=== PATIENT | female | born 1970 | race Caucasian/White ===

== ENCOUNTER → 2018-02-14 17:21 | Outpatient (CLI) | payer OTHER, SELFPAY ==
--- NOTE | 2018-02-14 | XR_ITS ---
XR femur LT 1V, XR femur RT 1V Ordering Physician: Kaitlyn Avendaño Patient Age: 47 years: Female HISTORY: TECHNIQUE: Left femur: AP and lateral Right femur: AP and lateral COMPARISON :Previous left knee from 2010 ===== LEFT FEMUR: AP AND LATERAL The left femoral shaft is intact. Limited 2 views of the left hip included unremarkable.. Today's left femur study also includes limited 2 views of the left knee. With comparison with previous left knee 2008.. The scant sharpening at lateral joint margin is stable, with joint spaces fairly well maintained at medial and & lateral compartment. There is a minimal mulberry-like 15-mm stippled calcification seen at distal femur just superior to the intercondylar notch. This was likely faintly developing in 2008 but is more evident today. More likely benign features such small old infarct or progressive benign bone island its indolent course of this small calcified foci. Other entities developing enchondroma less likely. There should be persistent pain at the distal femur in a follow-up view of the left knee follow-up in 3-months Suggested The soft tissues of the left thigh appear unremarkable. . ========= RIGHT FEMUR: AP AND LATERAL Right femoral shaft intact. 2 Limited views of the right hip included & unremarkable. The Limited views right knee on this femur film appears satisfactory with joint space overall fairly well-maintained on these limited views. Subtle Sharpening the at lateral joint margin may reflect some scant early degenerative changes. Unimpressive. ====IMPRESSION: 1. Right femur Views unremarkable. 2. Left femur. Intact. No acute findings. Femoral shaft intact unremarkable. On limited views of left knee is still noted a stable area sclerotic calcification just superior to the intercondylar notch which was likely faintly developing 2008.. Most likely benign indolent of minimally sclerotic bone lesion. However there should be persistent pain in this region follow-up study left knee suggested within the next 3 months to further evaluate
--- NOTE | 2018-02-14 | XR_ITS ---
XR foot LT min 3V, XR foot RT min 3V Ordering Physician: Kaitlyn Avendaño Patient Age: 47 years: Female HISTORY: ITS.REASON: PAIN bilateral foot pain TECHNIQUE: Left foot radiograph: 3 views nonweightbearing Right foot radiograph: 3 views nonweightbearing COMPARISON contralateral foot but with:No studies prior to today LEFT FOOT RADIOGRAPH: RIGHT FOOT RADIOGRAPH: 3 views of both left & right foot show no fracture nor dislocation. Joint spaces are well-maintained throughout. No erosions. Bones well mineralized. Both feet demonstrate accessory ossicle formation along the dorsal proximal corner of the navicular. Of this would appear to reflect the accessory ossicle,/os supranaviculare. Small accessory ossicle in ~ 1% of population (also called the dorsal talonavicular ossicle). It is slightly larger more irregular more evident at the left foot than typically seen. In this patient tender here or symptomatic optically on left here... Mild/moderate flexion is seen at at the second through fifth toe in both feet. Requires correlation. Adequate appearing plantar arch bilaterally Borderline to early hallux valgus suggest at the right foot more so than left on this nonweightbearing view. Bilateral plantar calcaneal spur Left foot with over 9 mm plantar calcaneal spur.. Right foot slightly thicker in larger-~11 mm calcaneal spur No spurring at insertion of Achilles tendon in either right or left foot. IMPRESSION: 1.. No fracture nor acute findings. 2. Suggestion of borderline/toearly hallux valgus on this nonweightbearing film. Also note mild/moderate flexion second-fifth toes bilateral.. Clinical correlation required regarding these features . 3. Bilateral plantar calcaneal spur. Right slightly thicker and larger than left 2. Incidental note os supranaviculareAccessory ossicle bilaterally seen at dorsal proximal margin of the navicular. This accessory ossicle is larger, more sclerotic and irregular appearance on the left foot than typically seen. Is patient symptomatic here?.
--- NOTE | 2018-02-14 | XR_ITS ---
XR hand LT min 3V, XR hand RT min 3V Ordering Physician: Kaitlyn Avendaño Patient Age: 47 years: Female HISTORY: ITS.REASON: PAINno known injury. No trauma reported TECHNIQUE: Right hand 3 views Left hand 3 views COMPARISON no previous studies. Only:Contralateral study from today ========= RIGHT HAND 3 VIEWS. Note: There is an oblique line at the head, neck of the middle phalanx long finger. Correlation required here. No focal swelling in this is only seen on the frontal projection. On difficult to exclude a subtle hairline fracture if pain at this site there are degenerative changes at the DIP joints most evident at the long and index finger where note posterior and anterior marginal osteophytes are most evident about the DIP joints. Scant degenerative changes IP joint of thumb as well as the fourth and fifth DIP joints. The PIP joints appear intact with only borderline narrowing.. Moderate Arthritic changes are seen at the first carpal-metacarpal joint with sclerosis about fragmentation minor hypertrophy here. Other carpals unremarkable. ===== IMPRESSION --- Right Hand:======= *1. Note subtle oblique line through the head of middle phalanx index finger. Seen only on frontal projection. Requires correlation. Cannot exclude a hairline fracture but no history of pain to raise concern here in this regard and it is not seen on the other views. Could be unusual vascular channel. 2. Degenerative changes right hand, Thick changes at DIP joints most evident & pronounced third & second DIP joint right hand.. Narrowing sclerosis marginal osteophytes most evident at these joints.. Less evident degenerative changes at IP joint of thumb and the fourth and fifth the IP joint. 3. moderate Degenerative arthritic changes of first carpal-metacarpal joint ======= LEFT HAND 3 VIEWS No fracture nor subluxation. Narrowing and developing arthritic changes at DIP joint of the left fingers. We again see marginal osteophytes most evident about the DIP joint of the index finger & lesser degree DIP joint long finger. Only trace, mild joint space narrowing at DIP joint of fourth & fifth finger. Borderline to scant narrowing at PIP joints of the fingers. Mild narrowing IP joint of thumb.. . Arthritic changes are seen at first carpal-metacarpal joint with sclerosis and joint space narrowing moderate minimal fragmentation and marginal osteophytes here. ==. IMPRESSION: Left hand= 1. Degenerative arthritic changes left hand. . Most evident & pronounced at DIP joints of index & long finger. 2. Moderate degenerative arthritic changes at first carpal-metacarpal joint
== END ==
PROVIDERS: PCP Nurse Practitioner Family; Visit Provider Nurse Practitioner Family
DX: M79.604 Pain in right leg (principal); M79.605 Pain in left leg; M79.672 Pain in left foot; M79.671 Pain in right foot; M79.642 Pain in left hand; M79.641 Pain in right hand
CPT/HCPCS: 73130; 73551; 73630

== ENCOUNTER → 2018-09-20 18:50 | Outpatient (CLI) | payer OTHER, SELFPAY ==
[2018-09-20 19:29] LABS: Alanine Aminotransferase 18 U/L (12-78); Albumin Level 3.7 gm/dL (3.4-5.0); Albumin/Globulin Ratio 1.1 (1.1-1.8); Alkaline Phosphatase 102 U/L (46-116); Anion Gap 11.2 mEq/L (5-15); Aspartate Amino Transferase 14 U/L (15-37); Bilirubin,Total 0.3 mg/dL (0.2-1.0); Blood Urea Nitrogen 10 mg/dL (7-18); C-Reactive Protein 0.3 mg/L (0.0-0.9); Calcium 9.3 mg/dL (8.5-10.1); Carbon Dioxide 32 mmol/L (21.0-32.0); Chloride 98 mmol/L (98-107); Creatinine,Serum 0.74 mg/dL (0.55-1.02); Estimated Glomerular Filt Rate 84 ml/min (>60); GFR (African American) 102 ML/MIN (>60); Globulin 3.4 gm/dl (1.3-3.2); Glucose 193 mg/dL (74-106); Potassium 4.2 mmoL/L (3.5-5.1); Sodium 137 mmol/L (136-145); Thyroid Stimulating Hormone 2.84 uIU/ml (0.358-3.740); Total Protein,Serum 7.1 gm/dL (6.4-8.2)
[2018-09-23 06:43] LABS: Vitamin D 25 Hydroxy 47.3 ng/mL (30.0-100.0)
== END ==
PROVIDERS: PCP Family Medicine; Visit Provider Family Medicine
DX: M25.50 Pain in unspecified joint (principal); R53.83 Other fatigue; E55.9 Vitamin D deficiency, unspecified
CPT/HCPCS: 36415; 80053; 82652; 84443; 86140

== ENCOUNTER → 2018-11-10 14:22 | Outpatient (CLI) | payer OTHER, SELFPAY ==
--- NOTE | 2018-11-10 14:28 | MR_ITS ---
MR head/brain wo con HISTORY: Bilateral arm numbness ITS.REASON: PARESTHESIA OF SKIN, ANESTHESIA OF SKIN ORDERING PHYSICIAN: Kaitlyn Avendaño PATIENT AGE: 48 years Comparison: None TECHNIQUE: Standard multiplanar multiecho sequences are performed without contrast. FINDINGS: No midline shift, mass effect, intracranial hemorrhage, or hydrocephalus is evident. No evidence of acute infarction. Normal nickerson-white matter differentiation with no abnormal white matter signal evident. The hippocampal gyri are unremarkable and the temporal horns are symmetric. No pituitary mass. The optic chiasm, cerebellar tonsils, and craniocervical junction have an unremarkable appearance. The cerebellopontine angle, cerebellum, and brainstem are unremarkable No mastoid effusion or sinus air-fluid level IMPRESSION: Negative unenhanced MRI of the brain
== END ==
PROVIDERS: PCP Family Medicine; Visit Provider Nurse Practitioner Family
DX: R20.2 Paresthesia of skin (principal); R20.0 Anesthesia of skin
CPT/HCPCS: 70551

== ENCOUNTER → 2019-03-09 08:06 | Outpatient (POV) | payer OTHER, SELFPAY | PROVIDERS: Visit Provider Dentist | DX: Z00.00 Encounter for general adult medical examination without abnormal findings (principal) ==

== ENCOUNTER → 2019-04-17 11:20 | Outpatient (CLI) | payer OTHER, SELFPAY ==
[2019-04-18 11:58] LABS: C-Reactive Protein 1.6 mg/L (0.0-0.9)
[2019-04-19 10:06] LABS: RA Latex Turbid. <10.0 IU/mL (0.0-13.9)
[2019-04-19 12:17] LABS: Sjogren's Anti-SS-A <0.2 AI (0.0-0.9)
[2019-04-20 12:36] LABS: Hepatitis C Antibody <0.1 s/co ratio (0.0-0.9); Sjogren's Anti-SS-B <0.2 AI (0.0-0.9)
[2019-04-20 12:37] LABS: Antinuclear Antibodies, IFA Negative (.)
== END ==
PROVIDERS: Visit Provider Nurse Practitioner Family
DX: R20.2 Paresthesia of skin (principal)
CPT/HCPCS: 86038; 86140; 86235; 86431; 87380

== ENCOUNTER → 2019-05-05 08:30 | Outpatient (CLI) | payer OTHER, SELFPAY ==
[2019-05-05 12:19] LABS: Alanine Aminotransferase 26 U/L (12-78); Albumin Level 4.1 gm/dL (3.4-5.0); Albumin/Globulin Ratio 1.3 (1.1-1.8); Alkaline Phosphatase 125 U/L (46-116); Anion Gap 15.1 mEq/L (5-15); Aspartate Amino Transferase 14 U/L (15-37); Bilirubin,Total 0.3 mg/dL (0.2-1.0); Blood Urea Nitrogen 8 mg/dL (7-18); Calcium 10.2 mg/dL (8.5-10.1); Carbon Dioxide 32 mmol/L (21.0-32.0); Chloride 96 mmol/L (98-107); Creatinine,Serum 0.69 mg/dL (0.55-1.02); Estimated Glomerular Filt Rate 92 ml/min (>60); GFR (African American) 111 ML/MIN (>60); Globulin 3.2 gm/dl (1.3-3.2); Glucose 328 mg/dL (74-106); Potassium 4.1 mmoL/L (3.5-5.1); Sodium 139 mmol/L (136-145); Total Protein,Serum 7.3 gm/dL (6.4-8.2)
[2019-05-06 20:50] LABS: C-Peptide 3.9 ng/mL (1.1-4.4); Insulin Level Total 16.4 uIU/mL (2.6-24.9)
== END ==
PROVIDERS: Visit Provider Nurse Practitioner Family
DX: E87.6 Hypokalemia (principal); E11.9 Type 2 diabetes mellitus without complications; Z79.84 Long term (current) use of oral hypoglycemic drugs
CPT/HCPCS: 36415; 80053; 83525; 84681

== ENCOUNTER → 2019-12-01 09:49 | Outpatient (CLI) | payer OTHER, SELFPAY ==
[2019-12-01 11:40] LABS: Alanine Aminotransferase 13 U/L (12-78); Albumin Level 3.8 gm/dL (3.4-5.0); Albumin/Globulin Ratio 1.2 (1.1-1.8); Alkaline Phosphatase 98 U/L (46-116); Anion Gap 10.5 mEq/L (5-15); Aspartate Amino Transferase 5 U/L (15-37); Bilirubin,Total 0.3 mg/dL (0.2-1.0); Blood Urea Nitrogen 13 mg/dL (7-18); Calcium 9.3 mg/dL (8.5-10.1); Carbon Dioxide 34 mmol/L (21.0-32.0); Chloride 99 mmol/L (98-107); Chol/HDL Ratio 4.4 (1-3.5); Cholesterol 225 mg/dL (140-200); Creatinine,Serum 0.69 mg/dL (0.55-1.02); Estimated Glomerular Filt Rate 91 ml/min (>60); GFR (African American) 110 ML/MIN (>60); Globulin 3.2 gm/dl (1.3-3.2); Glucose 243 mg/dL (74-106); HDL Cholesterol 51 mg/dL (29-89); LDL Cholesterol 130 mg/dL (0-130); Potassium 4.5 mmoL/L (3.5-5.1); Sodium 139 mmol/L (136-145); Triglycerides 220 mg/dL (30-200); VLDL Cholesterol 44 mg/dL (0-40)
== END ==
PROVIDERS: Visit Provider Nurse Practitioner Family
DX: E11.9 Type 2 diabetes mellitus without complications (principal); Z79.84 Long term (current) use of oral hypoglycemic drugs
CPT/HCPCS: 36415; 80053; 80061

== ENCOUNTER → 2020-04-02 09:39 | Outpatient (CLI) | payer OTHER, MEDICAID, SELFPAY ==
--- NOTE | 2020-04-02 09:56 | XR_ITS ---
PROCEDURE: XR CHEST 2V CLINICAL HISTORY: COUGH Cough, smoker COMPARISON: Chest from 04/23/2019 FINDINGS: The cardiomediastinal silhouette and pulmonary vascularity are within normal limits. The lungs are clear without infiltrates, suspicious nodules, or pleural effusions. No acute bony abnormalities. IMPRESSION: No acute findings. Dictated by: Puneet Nguyen MD 04/02/2020 14:06 Electronically signed by Puneet Nguyen MD in [place] 04/02/2020 14:06
== END ==
PROVIDERS: PCP Family Medicine; Visit Provider Nurse Practitioner Family
DX: R05 Cough (principal)
CPT/HCPCS: 71046

== ENCOUNTER → 2020-09-07 10:10 | Outpatient (CLI) | payer MEDICAID, SELFPAY ==
--- NOTE | 2020-09-07 10:47 | XR_ITS ---
PROCEDURE: XR CERVICAL SPINE 4V Referring Doctor: Fransico Gee Patient Age:50Y CLINICAL INDICATION: RIGHT ARM NUMBNESS , CERVICALGIA patient would not hold still COMPARISON: No exams were available for comparison FINDINGS: Mild scoliosis spine noted:. Levoscoliosis upper T-spine with associated mild dextrocurvature cervical thoracic junction and lower T-spine. Degenerative disc space narrowing and findings most evident at C6/7. Posterior spur spurring at C6/7 yields bilateral foraminal encroachment a most evident to the left at this level. There is also some uncovertebral joint hypertrophy and spurring at C5/6 which yields moderate right foraminal encroachment along with some facet hypertrophy on the right at C5/6 C3/4. Moderate left foraminal encroachment due to prominent left facet hypertrophy at this level along with mild uncovertebral joint spurring If symptoms severe or progress MRI C-spine would be warranted The levels above this appear intact unremarkable. C1-C2 relationships appear normal. Bones well mineralized but apices of the lungs are clear. IMPRESSION: . Mild dextroscoliosis off involving lower cervical spine& and cervical thoracic junction region. . C5/6: Moderate right foraminal encroachment at C5/6 due to uncovertebral joint spurring along with facet hypertrophy on right. . C6/7: Spurring yields moderate left foraminal encroachment ,more so than right at this level C3/4. Moderate left foraminal encroachment due to generous facet hypertrophy along with mild uncovertebral joint spurring Dictated by: Enrique Fischer MD 09/07/2020 13:32 Enrique Fischer MD in [place] 09/07/2020 13:32
--- NOTE | 2020-09-07 10:47 | XR_ITS ---
PROCEDURE: XR SHOULDER RT MIN 2V Referring Doctor: Fransico Gee Patient Age:50Y CLINICAL INDICATION: RIGHT ARM NUMBNESS no injury COMPARISON: CR Chest from 04/23/2019 CR XR CHEST 2V from 04/02/2020 CR XR CERVICAL SPINE 4V from 09/07/2020 FINDINGS: Right shoulder three views AP internal and external rotation along with Y-view. The glenohumeral joint is intact. Humeral head and neck appear intact. Degenerative changes AC joint with some [id number] spurring both superior and inferior aspect of AC joint. Radisson right lung clear upper right ribs unremarkable. Scapula unremarkable . Mild scoliosis spine noted:. Levoscoliosis upper T-spine with associated slight dextrocurvature of the lower T-spine and lower cervical spine/cervical thoracic junction region. Degenerative changes at the cervical spine described in a separate report IMPRESSION: . No acute findings at right shoulder. Mild to moderate AC joint arthropathy/hypertrophy noted Glenohumeral joint intact, unremarkable. Dictated by: Enrique Fischer MD 09/07/2020 13:37 Enrique Fischer MD in [place] 09/07/2020 13:37
--- NOTE | 2020-09-07 10:47 | XR_ITS ---
PROCEDURE: XR TIBIA FIBULA RT 2V Referring Doctor: Fransico Gee Patient Age:50Y CLINICAL INDICATION: INJURY TO RIGHT LOWER LEG patient fell with bruising and hematoma overlying proximal tibia COMPARISON: No exams were available for comparison FINDINGS: The tibia and fibula appear intact with no osseous fracture or findings of significance. There is focal soft tissue swelling anterior to the proximal tibia and just below the tibial tubercle. This focal hematoma bulges anteriorly and extends for a least 7 cm length. The underlying bone intact in this region. There is a small leobardo of calcification anterior to the lower tibia which I suspect is a venous calcification.. The lower leg study includes limited two view images of the right knee and ankle but no significant findings here.-only note a generous calcaneal spur measuring up to 9 mm at plantar aspect calcaneus, along with moderate spurring at the insertion of Achilles tendon IMPRESSION: No osseous findings. No fracture at tibia or fibula. Focal soft tissue swelling anterior to the proximal tibia reflects clinically evident hematoma Dictated by: Enrique Fischer MD 09/07/2020 13:36 Enrique Fischer MD in [place] 09/07/2020 13:36
== END ==
PROVIDERS: PCP Family Medicine; Visit Provider Family Medicine
DX: S89.91XA Unspecified injury of right lower leg, initial encounter (principal); M54.2 Cervicalgia; R20.0 Anesthesia of skin
CPT/HCPCS: 72050; 73030; 73590

== ENCOUNTER → 2020-10-29 12:27 | Outpatient (CLI) | payer BC, SELFPAY ==
--- NOTE | 2020-10-29 12:33 | XR_ITS ---
PROCEDURE: XR WRIST RT MIN 3V CLINICAL INDICATION: right wrist pain/ CTS COMPARISON: CR [id number] XR hand RT min 3V from 02/14/2018 FINDINGS: No fracture or dislocation. No lytic or blastic change. There is normal mineralization. There are osteoarthritic changes at the 1st metacarpal-carpal junction with bony hypertrophy and periarticular loose bodies. The osteoarthritic changes have increased since 02/14/2018. 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
== END ==
PROVIDERS: PCP Nurse Practitioner Family; Visit Provider Orthopaedic Surgery
DX: M25.531 Pain in right wrist (principal)
CPT/HCPCS: 73110

== ENCOUNTER 2020-10-31 14:30 | Outpatient (RCR) | payer BC, SELFPAY | END 2020-10-31 15:00 | disposition home or self-care (01) | LOC: OT 14:30 | PROVIDERS: Visit Provider Orthopaedic Surgery | DX: G56.02 Carpal tunnel syndrome, left upper limb (principal) | CPT/HCPCS: 97763 ==

== ENCOUNTER → 2020-11-06 14:53 | Outpatient (CLI) | payer BC, SELFPAY ==
[2020-11-06 15:36] LABS: Basophils % 0.6 % (0.1-2.0); Eosinophils # 0.1 K/mm3 (0.0-0.4); Eosinophils % 1.5 % (0.1-12.0); Hematocrit 41.5 % (37.0-47.0); Hemoglobin 13.6 g/dL (12.2-16.2); Lymphocytes # 1.8 K/mm3 (0.7-4.5); Lymphocytes % 23.3 % (10-50); Mean Corpuscular HGB Conc 32.7 g/dL (31.8-35.4); Mean Corpuscular Hemoglobin 29.3 pg (27.0-31.2); Mean Corpuscular Volume 89.6 fl (81-99); Mean Platelet Volume 7.5 fl (7.4-10.4); Monocytes # 0.5 K/mm3 (0.1-1.0); Monocytes % 6.8 % (1.7-9.3); Neutrophils # 5.3 K/mm3 (1.8-7.8); Neutrophils % 67.8 % (37.0-80.0); Platelet Count 307 K/mm3 (142-424); Red Blood Count 4.63 M/mm3 (4.20-5.40); Red Cell Distribution Width 13.7 % (11.5-17.5); White Blood Count 7.9 K/mm3 (4.8-10.8)
[2020-11-06 16:01] LABS: Chloride 94 mmol/L (98-107); Potassium 3.8 mmoL/L (3.5-5.1); Sodium 134 mmol/L (136-145)
[2020-11-06 16:04] LABS: Alanine Aminotransferase 44 U/L (12-78); Albumin Level 4.2 g/dl (3.5-5.0); Albumin/Globulin Ratio 1.8 (1.1-1.8); Alkaline Phosphatase 89 U/L (38-126); Anion Gap 12.8 mEq/L (5-15); Aspartate Amino Transferase 44 U/L (14-36); Bilirubin,Total 0.4 mg/dl (0.2-1.3); Blood Urea Nitrogen 13 mg/dl (7-17); Carbon Dioxide 31 mmol/L (22.0-30.0); Estimated Glomerular Filt Rate 107 ml/min (>60); GFR (African American) 129 ML/MIN (>60); Globulin 2.3 g/dL (1.3-3.2); Total Protein,Serum 6.5 g/dl (6.3-8.2)
[2020-11-06 16:05] LABS: Calcium 9.3 mg/dl (8.4-10.2); Glucose 130 mg/dl (74-100)
[2020-11-06 16:20] LABS: Coronavirus 19 IgG Antibody Negative (Negative); Coronavirus 19 IgM Antibody Negative (Negative)
[2020-11-06 17:46] LABS: Hemoglobin A1C 6.3 % (4.0-6.0)
== END ==
PROVIDERS: Visit Provider Orthopaedic Surgery
DX: Z01.818 Encounter for other preprocedural examination (principal); Z03.818 Encounter for observation for suspected exposure to other biological agents ruled out; G56.02 Carpal tunnel syndrome, left upper limb; E11.9 Type 2 diabetes mellitus without complications
CPT/HCPCS: 36415; 80053; 83036; 85025; 86328

== ENCOUNTER 2020-11-07 07:23 | Day surgery (SDC) | payer BC, MEDICAID, SELFPAY ==
[2020-11-06 11:45] VITALS: BMI 30.1
[2020-11-07] VITALS (12 sets, daily range): BP systolic 104–137; BP diastolic 68–76; PULSE 73–97; RESP 12–18; TEMP 36.3–43; O2SAT 94–96
[2020-11-07 07:58] LABS: POC Glucose,Bedside 185 (70-110)
[2020-11-07 08:13] LABS: Urine Pregnancy, HCG Qual. Negative (Negative)
--- NOTE | 2020-11-07 08:14 | P.PN_ITS ---
[facility] Anesthesia Checklist - Patient Identification Patient Identification: Arm Band, Verbal (Name & ) - Structural Data Admitted From: Home Planned Operative Procedure/s: r ctr Consent for Planned Operative Procedure(s) Verified: Yes Verified Documents: History and Physical - NPO Status Verified Time NPO: 00:00 - Additional verifications Patient : No Anesthesia Reactions: No Hx Blood Transfusions: No Blood Transfusion Reaction: No Cephalosporin Allergy: No Previous Colonoscopy: Yes - Cardiovascular Assessment Heart Sounds: S1 & S2 Pulse Strength: Baseline Pulse Rhythm: Regular Peripheral Edema: No - Airway Assessment C-Spine Mobility Assessed: Yes TMJ Mobility Assessed: Yes Dentition: Poor Dentition - Neurological Assessment Level of Consciousness: Awake, Alert, Appropriate Hx Seizures: No Numbness or tingling in extremities: No - Anesthesia Plan Anesthesia Risk discussed: Yes Anesthesia Plan: Verified ASA Class: III Anesthesia Type: General [facility] History I have reviewed the patient's past medical history: Yes Medical History: Reports:: Diabetes Mellitus Type 2 Denies:: Cancer, Diabetes Mellitus Type 1, Internal Pacemaker, MRSA, Seizures *Have you ever received a pneumonia vaccine?: No *Have you received a flu vaccine this season?: No Other Medical History: Denies: Blood Transfusion Reaction Anesthesia experience/problems:: none Other Surgeries: No: Pacemaker Amputation: No Fractures: No - *Social History Last grade of school completed: Some college Smoking Status: Current every day smoker Tobacco Type: cigarettes # Packs/Day (cigarettes): 1 Alcohol Intake: current Alcohol Intake Frequency:: holidays/special occasions only Substance Use Type: marijuana *Occupational Status:: unemployed Housing: house *Travel in the last 8 weeks: None Family Hx:: Heart Attack
--- NOTE | 2020-11-07 09:56 | P.PN_ITS ---
[facility] Anesthesia Record Part I Intake, IV Amount: 800 Estimated blood loss (mL): 0 Urine output (mL): 0 Blood Pressure: 108/68 SaO2: 95 Pulse Rate: 97 Respiratory Rate: 12 Temperature: 97.3 F Patient is:: Awake, Stable Stable to PACU at:: 09:55
--- NOTE | 2020-11-07 14:29 | HMH.OPNOTE ---
Date of procedure: 11/07/20 Pre-op Diagnosis:: Carpal tunnel syndrome, right wrist Post-op Diagnosis:: Same Procedure performed:: Open carpal tunnel release, right wrist Surgeon:: Clint Wise MD TISSUE TECHNICIAN:: Eren Hodge Anesthesia: LMA Estimated blood loss (mL): 2 Clinical Note:: Patient is a 50-year-old female with right carpal tunnel syndrome with long-standing symptoms. EMG/NCV studies confirmed moderate carpal tunnel syndrome on the right side. Patient is having significant and disabling symptoms and has failed to respond adequately to conservative management. Therefore, carpal tunnel release surgery is necessary to relieve symptoms, preserve the remaining fibers of the median nerve, improve function and decrease the pain, paresthesias and weakness and to prevent permanent nerve damage. Please refer to my office note for full details. Operative findings:: The intraoperative findings showed the median nerve to be very tightly compressed and hyperemic. The flexor retinaculum was noted to be thick and tight. There was mild synovitis in the carpal tunnel. There was no evidence of any space-occupying lesions within the carpal tunnel. Operative note:: On the day of the surgery the patient was met in the preoperative area. Patient was positively identified and the operative site was marked and initialed by me. A physical examination was performed and the chart was updated. I again discussed the procedure, risks and benefits and alternatives with the patient. The complications discussed include but are not limited to- bleeding, injury to nerves, blood vessels and tendons, infection, wound dehiscence, incomplete relief/continued pain, persistent numbness, palmar hypersensitivity, pillar pain, DVT/PE, complex regional pain syndrome(CRPS), worsening of nerve damage, failure of the condition to improve, incomplete return of function, bowstringing of tendons, weakness of wrist closer strength, recurrence, failure of the surgery to accomplish the desired goals, decreased use of the hand, loss of use of the arm, loss of the hand or arm, loss of life. Likely need for further surgery in the future has been discussed. I've indicated to the patient where the proposed incision would be made and also discussed the possibility of extending the incision if needed to accomplish an effective release. We have discussed how the goal of surgery is to protect the fibers which have remained healthy and hopefully reverse the symptoms of the fibers which are compromised but still recoverable. We have explained that, fibers that are permanently damaged will not recover. Patient asked appropriate questions and all have been answered by me. Patient wished to proceed with the surgery. Patient understood the risks, agreed to proceed with surgery, signed the consent form and no guarantees or assurances were given or implied. The patient was brought to the operating room and placed supine on the operating table. The right upper extremity was placed over a side table. All the bony prominences were well-padded. General anesthesia administered with metal technician. A well-padded tourniquet cuff was applied over the upper arm. The right upper extremity was prepped and draped in the usual sterile fashion. A preprocedure timeout was performed as per hospital policy. The skin incision was marked using the Schafer's landmarks, just ulnar to the thenar crease. The limb was exsanguinated with the Esmarch bandage and tourniquet was inflated to 250 mmHg. Please see nursing records for the total tourniquet time. Schafer's landmarks were utilized and a skin incision was made parallel and just ulnar to the thenar crease with a 15 blade. Blunt tissue dissection was carried through the subcutaneous tissue down to the palmar fascia. The palmar fascia was incised with the knife to reveal the transverse carpal ligament. The transverse carpal ligament was adequately exposed and then incised with the knife just enough to exp
--- NOTE | 2020-11-07 19:05 | HMH.ANESII ---
[facility] Anesthesia Record Part II Discharge Time: 10:22 Destination: Surgical Day Care (OP Surgery) PACU nurse assessment reviewed?: Yes Patient Condition:: Good Anesthesia Complications:: None Swallowing reflex intact?: Yes Cyanosis?: No Blood Pressure: 119/72 Pulse Rate: 79 Temperature: 97.3 F Mental Status: Alert & Oriented Pain level:: 0 Nausea and/or vomitting:: None Intake, IV Amount: 0
== END 2020-11-07 11:10 | disposition home or self-care (01) ==
LOC: OR 07:27
PROVIDERS: PCP Nurse Practitioner Family; Visit Provider Orthopaedic Surgery
PROC: (CPT 64721; principal; 2020-11-07 09:00)
DX: G56.01 Carpal tunnel syndrome, right upper limb (principal); E11.9 Type 2 diabetes mellitus without complications; Z79.84 Long term (current) use of oral hypoglycemic drugs; Z79.899 Other long term (current) drug therapy
CPT/HCPCS: 64721; 81025; 82962; 96374; J2405

== ENCOUNTER → 2021-01-01 13:57 | Outpatient (CLI) | payer OTHER, SELFPAY ==
--- NOTE | 2021-01-01 14:05 | XR_ITS ---
PROCEDURE: XR WRIST LT MIN 3V CLINICAL INDICATION: left wrist pain/ CTS COMPARISON: CR XR WRIST RT MIN 3V from 10/29/2020 FINDINGS: No fracture or dislocation. No lytic or blastic change. There is normal mineralization. Osteoarthritic changes are present at the 1st metacarpal-carpal joint which are severe in nature with prominent bony hypertrophy of the trapezium dorsally and medially at the joint space. There is a well-circumscribed calcific density which measures 9 mm lateral to the trapezium and could be due to an old injury or periarticular posttraumatic or degenerative calcification. There is mild lateral subluxation of the 1st metacarpal by proximally 5 mm. Other findings:None. IMPRESSION: Degenerative changes of the 1st metacarpal-carpal joint as described otherwise negative Dictated by: Puneet Nguyen MD 01/01/2021 14:59 Puneet Nguyen MD in [place] 01/01/2021 14:59
== END ==
PROVIDERS: PCP Nurse Practitioner Family; Visit Provider Orthopaedic Surgery
DX: M25.532 Pain in left wrist (principal)
CPT/HCPCS: 73110

== ENCOUNTER → 2021-01-14 18:24 | Outpatient (CLI) | payer OTHER, SELFPAY ==
[2021-01-14 18:48] LABS: Basophils # 0.1 K/mm3 (0-0.2); Basophils % 0.7 % (0.1-2.0); Eosinophils # 0.2 K/mm3 (0.0-0.4); Eosinophils % 2.2 % (0.1-12.0); Hematocrit 45.3 % (37.0-47.0); Hemoglobin 14.3 g/dL (12.2-16.2); Lymphocytes # 2.7 K/mm3 (0.7-4.5); Lymphocytes % 32.7 % (10-50); Mean Corpuscular HGB Conc 31.5 g/dL (31.8-35.4); Mean Corpuscular Hemoglobin 28.4 pg (27.0-31.2); Mean Corpuscular Volume 90.1 fl (81-99); Mean Platelet Volume 7.3 fl (7.4-10.4); Monocytes # 0.4 K/mm3 (0.1-1.0); Monocytes % 4.9 % (1.7-9.3); Neutrophils # 4.9 K/mm3 (1.8-7.8); Neutrophils % 59.4 % (37.0-80.0); Platelet Count 311 K/mm3 (142-424); Red Blood Count 5.03 M/mm3 (4.20-5.40); Red Cell Distribution Width 13.3 % (11.5-17.5); White Blood Count 8.3 K/mm3 (4.8-10.8)
[2021-01-14 19:29] LABS: Chloride 99 mmol/L (98-107); Sodium 135 mmol/L (136-145)
[2021-01-14 19:30] LABS: Potassium 4.2 mmoL/L (3.5-5.1)
[2021-01-14 19:32] LABS: Alanine Aminotransferase 19 U/L (12-78); Alkaline Phosphatase 111 U/L (38-126); Aspartate Amino Transferase 26 U/L (14-36); Bilirubin,Total 0.2 mg/dl (0.2-1.3); Blood Urea Nitrogen 24 mg/dl (7-17); Estimated Glomerular Filt Rate 89 ml/min (>60); GFR (African American) 108 ML/MIN (>60)
[2021-01-14 19:33] LABS: Albumin Level 4.8 g/dl (3.5-5.0); Albumin/Globulin Ratio 1.7 (1.1-1.8); Anion Gap 13.2 mEq/L (5-15); Calcium 9.6 mg/dl (8.4-10.2); Carbon Dioxide 27 mmol/L (22.0-30.0); Globulin 2.9 g/dL (1.3-3.2); Glucose 154 mg/dl (74-100); Total Protein,Serum 7.7 g/dl (6.3-8.2)
[2021-01-15 08:34] LABS: Coronavirus 19 IgG Antibody Positive (Negative); Coronavirus 19 IgM Antibody Positive (Negative)
== END ==
PROVIDERS: Visit Provider Orthopaedic Surgery
DX: Z01.818 Encounter for other preprocedural examination (principal); Z20.822 Contact with and (suspected) exposure to COVID-19; U07.1 COVID-19; G56.02 Carpal tunnel syndrome, left upper limb
CPT/HCPCS: 36415; 80053; 85025; 86328

== ENCOUNTER → 2021-01-15 12:01 | Outpatient (CLI) | payer OTHER, SELFPAY | PROVIDERS: PCP Nurse Practitioner Family; Visit Provider Orthopaedic Surgery | DX: Z20.822 Contact with and (suspected) exposure to COVID-19 (principal); U07.1 COVID-19 | CPT/HCPCS: U0003 ==

== ENCOUNTER → 2021-02-18 13:13 | Outpatient (CLI) | payer OTHER, SELFPAY ==
[2021-02-18 13:27] LABS: Basophils # 0.1 K/mm3 (0-0.2); Basophils % 0.7 % (0.1-2.0); Eosinophils # 0.1 K/mm3 (0.0-0.4); Eosinophils % 1.1 % (0.1-12.0); Hematocrit 45.2 % (37.0-47.0); Lymphocytes # 2.4 K/mm3 (0.7-4.5); Lymphocytes % 28.5 % (10-50); Mean Corpuscular HGB Conc 33.1 g/dL (31.8-35.4); Mean Corpuscular Hemoglobin 28.9 pg (27.0-31.2); Mean Corpuscular Volume 87.3 fl (81-99); Mean Platelet Volume 7.4 fl (7.4-10.4); Monocytes # 0.4 K/mm3 (0.1-1.0); Monocytes % 4.7 % (1.7-9.3); Neutrophils # 5.4 K/mm3 (1.8-7.8); Platelet Count 376 K/mm3 (142-424); Red Blood Count 5.18 M/mm3 (4.20-5.40); Red Cell Distribution Width 13.4 % (11.5-17.5); White Blood Count 8.4 K/mm3 (4.8-10.8)
[2021-02-18 13:58] LABS: Chloride 99 mmol/L (98-107); Sodium 136 mmol/L (136-145)
[2021-02-18 13:59] LABS: Potassium 4.6 mmoL/L (3.5-5.1)
[2021-02-18 14:01] LABS: Alanine Aminotransferase 21 U/L (12-78); Alkaline Phosphatase 98 U/L (38-126); Aspartate Amino Transferase 28 U/L (14-36); Bilirubin,Total 0.5 mg/dl (0.2-1.3); Blood Urea Nitrogen 14 mg/dl (7-17); Estimated Glomerular Filt Rate 132 ml/min (>60); GFR (African American) 159 ML/MIN (>60)
[2021-02-18 14:02] LABS: Albumin/Globulin Ratio 2.1 (1.1-1.8); Anion Gap 14.6 mEq/L (5-15); Calcium 9.8 mg/dl (8.4-10.2); Carbon Dioxide 27 mmol/L (22.0-30.0); Globulin 2.4 g/dL (1.3-3.2); Glucose 173 mg/dl (74-100); Total Protein,Serum 7.4 g/dl (6.3-8.2)
[2021-02-18 15:12] LABS: Coronavirus 19 IgG Antibody Positive (Negative); Coronavirus 19 IgM Antibody Negative (Negative)
== END ==
PROVIDERS: Visit Provider Orthopaedic Surgery
DX: Z01.818 Encounter for other preprocedural examination (principal); Z20.822 Contact with and (suspected) exposure to COVID-19; G56.02 Carpal tunnel syndrome, left upper limb; M18.12 Unilateral primary osteoarthritis of first carpometacarpal joint, left hand
CPT/HCPCS: 36415; 80053; 85025; 86328

== ENCOUNTER 2021-02-20 08:32 | Day surgery (SDC) | payer OTHER, SELFPAY ==
[2021-01-15 10:56] VITALS: BMI 31.8
[2021-02-20] VITALS (11 sets, daily range): BP systolic 104–151; BP diastolic 71–87; PULSE 75–88; RESP 15–20; TEMP 36.4–42.7; O2SAT 91–95
[2021-02-20 09:11] LABS: HCG Qualitative, Serum Negative (Negative)
[2021-02-20 09:21] LABS: POC Glucose,Bedside 135 (70-110)
--- NOTE | 2021-02-20 11:00 | P.PN_ITS ---
[facility] Anesthesia Checklist - Patient Identification Patient Identification: Arm Band - Structural Data Admitted From: Home Planned Operative Procedure/s: L. carpal tunnel release Consent for Planned Operative Procedure(s) Verified: Yes - NPO Status Verified Time NPO: 00:00 - Additional verifications Anesthesia Reactions: No Hx Blood Transfusions: No Blood Transfusion Reaction: No - Airway Assessment C-Spine Mobility Assessed: Yes TMJ Mobility Assessed: Yes Dentition: Poor Dentition - Neurological Assessment Level of Consciousness: Awake Hx Seizures: No Numbness or tingling in extremities: No - Anesthesia Plan Anesthesia Risk discussed: Yes Anesthesia Plan: Verified ASA Class: II Anesthesia Type: General w/block [facility] History I have reviewed the patient's past medical history: Yes Medical History: Reports:: Diabetes Mellitus Type 2 Denies:: Cancer, Diabetes Mellitus Type 1, Internal Pacemaker, MRSA, Seizures *Have you ever received a pneumonia vaccine?: No *Have you received a flu vaccine this season?: No Other Medical History: Denies: Blood Transfusion Reaction Anesthesia experience/problems:: PONV Laterality Cases: Right: Carpal Tunnel Release Other Surgeries: No: Pacemaker Amputation: No Fractures: No - *Social History Last grade of school completed: Advanced degree Smoking Status: Current every day smoker Tobacco Type: cigarettes # Packs/Day (cigarettes): 1 Alcohol Intake: never Alcohol Intake Frequency:: holidays/special occasions only Substance Use Type: marijuana *Occupational Status:: unemployed Housing: house Household Members: spouse *Travel in the last 8 weeks: None Family Hx:: No significant family history
--- NOTE | 2021-02-20 11:35 | P.PN_ITS ---
[facility] Anesthesia Record Part I Intake, IV Amount: 500 Estimated blood loss (mL): 0 Urine output (mL): 0 Blood Pressure: 115/72 SaO2: 92 Pulse Rate: 75 Respiratory Rate: 15 Temperature: 98.3 F Patient is:: Drowsy, Oral/Nasal airway Stable to PACU at:: 11:32
[2021-02-20 11:55] LABS: POC Glucose,Bedside 114 (70-110)
--- NOTE | 2021-02-20 13:35 | HMH.ANESII ---
[facility] Anesthesia Record Part II Discharge Time: 12:02 Destination: Surgical Day Care (OP Surgery) PACU nurse assessment reviewed?: Yes Patient Condition:: Good Anesthesia Complications:: None Swallowing reflex intact?: Yes Cyanosis?: No Blood Pressure: 132/79 Pulse Rate: 80 Temperature: 97.6 F Mental Status: Alert & Oriented Pain level:: 0 Nausea and/or vomitting:: None Intake, IV Amount: 900
--- NOTE | 2021-02-20 13:54 | HMH.OPNOTE ---
Date of procedure: 02/20/21 Pre-op Diagnosis:: Carpal tunnel syndrome, left Post-op Diagnosis:: Same Procedure performed:: Open carpal tunnel release, left wrist Surgeon:: Clint Wise MD Regional Transportation Manager(s):: Gloria Velazquez FINISHING FRAME RUNNER:: Other (Leo Jansen) Anesthesia: regional (Supraclavicular nerve block), LMA Estimated blood loss (mL): 2 Clinical Note:: Patient is a 50-year-old female with left carpal tunnel syndrome with long-standing symptoms. [EMG/NCV studies confirmed carpal tunnel syndrome on both sides and she previously underwent successful carpal tunnel release on the right side]. Patient is now having significant and disabling symptoms on the left side and has failed to respond adequately to conservative management.]. Therefore, carpal tunnel release surgery is necessary to relieve symptoms, preserve the remaining fibers of the median nerve, improve function and decrease the pain, paresthesias and weakness and to prevent permanent nerve damage. Please refer to my office note for full details. Operative findings:: The intraoperative findings showed the median nerve to be very tightly compressed and hyperemic. The flexor retinaculum was noted to be thick and tight. There was mild synovitis in the carpal tunnel. There was no evidence of any space-occupying lesions within the carpal tunnel. Operative note:: On the day of the surgery the patient was met in the preoperative area. Patient was positively identified and the operative site was marked and initialed by me. A physical examination was performed and the chart was updated. I again discussed the procedure, risks and benefits and alternatives with the patient. The complications discussed include but are not limited to- bleeding, injury to nerves, blood vessels and tendons, infection, wound dehiscence, incomplete relief/continued pain, persistent numbness, palmar hypersensitivity, pillar pain, DVT/PE, complex regional pain syndrome(CRPS), worsening of nerve damage, failure of the condition to improve, incomplete return of function, bowstringing of tendons, weakness of optician manager strength, recurrence, failure of the surgery to accomplish the desired goals, decreased use of the hand, loss of use of the arm, loss of the hand or arm, loss of life. Likely need for further surgery in the future has been discussed. I've indicated to the patient where the proposed incision would be made and also discussed the possibility of extending the incision if needed to accomplish an effective release. We have discussed how the goal of surgery is to protect the fibers which have remained healthy and hopefully reverse the symptoms of the fibers which are compromised but still recoverable. We have explained that, fibers that are permanently damaged will not recover. Patient asked appropriate questions and all have been answered by me. Patient wished to proceed with the surgery. Patient understood the risks, agreed to proceed with surgery, and no guarantees or assurances were given or implied. The patient was brought to the operating room and placed supine on the operating table. The left upper extremity was placed over a side table. All the bony prominences were well-padded. [The patient had a supraclavicular nerve block as well as general anesthesia with LMA. A well-padded tourniquet cuff was placed over the upper arm. The left upper extremity was prepped and draped in the usual sterile fashion. A preprocedure timeout was performed as per hospital policy. Administration of prophylactic antibiotics was confirmed with the identification and records commander. The skin incision was marked using the Schafer's landmarks, just ulnar to the thenar crease. The limb was exsanguinated with the Esmarch bandage and tourniquet was inflated to 250 mmHg. Please see nursing records for the total tourniquet time. Schafer's landmarks were utilized and a skin incision was made parallel and just ulnar to the thenar crease with a 15 blade. Blunt tissue dissection was carried thro
== END 2021-02-20 12:45 | disposition home or self-care (01) ==
LOC: OR 08:35
PROVIDERS: PCP Nurse Practitioner Family; Visit Provider Orthopaedic Surgery
PROC: (CPT 64721; principal; 2021-02-20 10:15)
DX: G56.02 Carpal tunnel syndrome, left upper limb (principal); E11.9 Type 2 diabetes mellitus without complications; Z79.899 Other long term (current) drug therapy
CPT/HCPCS: 64721; 82962; 84703; 96374; J0670; J2405

== ENCOUNTER → 2021-05-23 11:04 | Outpatient (CLI) | payer OTHER, SELFPAY ==
--- NOTE | 2021-05-23 11:08 | XR_ITS ---
PROCEDURE: XR KNEE LT 3V CLINICAL INDICATION: INJURY OF LT KNEE, INITIAL ENCOUNTER COMPARISON: No exams were available for comparison FINDINGS: No fracture or dislocation. No lytic or blastic change. There is normal mineralization. There are mild osteoarthritic changes involving the medial lateral compartment. There is a mixed lucent and sclerotic lesion involving the intramedullary portion of the distal femur at 13 x 14 mm. This is at the metaphyseal region. Other findings:Suspect a small suprapatellar effusion. IMPRESSION: No acute fracture. There is a mixed sclerotic and lucent lesion of the distal femur. Differential diagnosis includes enchondroma, chondrosarcoma, or bone infarction. Consider MRI without and with contrast and bone scan for further evaluation and classification. Mild osteoarthritis with small knee joint effusion Dictated by: Puneet Nguyen MD 05/23/2021 11:44 Puneet Nguyen MD in [facility] 05/23/2021 11:44
== END ==
PROVIDERS: PCP Nurse Practitioner Family; Visit Provider Nurse Practitioner Family
DX: S89.92XA Unspecified injury of left lower leg, initial encounter (principal); M25.362 Other instability, left knee
CPT/HCPCS: 73562

== ENCOUNTER → 2021-06-04 12:23 | Outpatient (CLI) | payer OTHER, SELFPAY ==
[2021-06-04 13:00] LABS: Blood Urea Nitrogen 15 mg/dl (7-17); Estimated Glomerular Filt Rate 107 ml/min (>60); GFR (African American) 129 ML/MIN (>60)
--- NOTE | 2021-06-04 13:00 | MR_ITS ---
PROCEDURE INFORMATION: Exam: MR Left Lower Extremity Joint Without and With Contrast, Knee Exam date and time: 06/04/2021 1:00 PM Age: 50 years old Clinical indication: Pain; Knee; Left; Additional info: Injury to left knee, instability of left knee. Hyperextended knee. Medial sided knee pain. Instability of knee. No injury or trauma. PT had a hard time staying still. Repeated scans and sent best images. 17ml prohance given. Lot: [id number] exp: Jan 2023 bun: 15 cre: 0.6 gfr: 107 prior x-ray 05-23-21 TECHNIQUE: Imaging protocol: MR of the Left lower extremity joint without and with contrast. Exam focused on the knee. Contrast material: PROHANCE; Contrast volume: 17 ml; Contrast route: IV; COMPARISON: 1. CR XR KNEE LT 3V 05/23/2021 11:11 AM 2. CR [id number] XR foot LT min 3V 02/14/2018 5:40 PM 3. CR [id number] XR femur LT 1V 02/14/2018 5:36 PM FINDINGS: Limitations: Motion artifact. Bones and cartilage: A cartilaginous lesion in the distal femoral metaphysis measures 0.8 x 1.5 x 1.9 cm (AP, ML, CC), as measured on series 4/image 14 and series 11/image 13. There are no aggressive features. The lesion has a grossly similar size compared with 02/14/2018. An enchondroma is favored. The bone marrow has heterogeneous signal intensity. The marrow signal intensity is not as low in signal as muscle on T1-weighted sequences and there are preserved foci of marrow fat, making this heterogeneity unlikely to be malignant. Hematopoietic red bone marrow reconversion is favored. This could be confirmed on future MR imaging by adding an opposed phase sequence. There is grade III (out of IV) high-grade partial-thickness cartilage loss involving the medial compartment. There is grade II (out of IV) low-grade partial-thickness cartilage loss involving the patellofemoral joint. No significant cartilage damage involves the lateral compartment. There is mild lateral subluxation of the patella. Joint spaces: A large joint effusion involves the knee. Medial meniscus: A complex tear involves the posterior horn of the medial meniscus. Abnormal signal extends to both the superior and inferior meniscal surfaces involving the posterior horn with truncation of the body apex. Lateral meniscus: A horizontal tear involves the anterior horn and body of the lateral meniscus. The tear extends to the inferior meniscal surface. Anterior cruciate ligament: The anterior cruciate ligament is intact. Posterior cruciate ligament: The posterior cruciate ligament is intact. Medial capsule and supporting structures: Edema is present around the medial collateral ligament, consistent with a low-grade sprain (grade I injury). Lateral capsule and supporting structures: Abnormal increased T2 signal within the fibular collateral ligament is consistent with an age indeterminate, low-grade partial-thickness tear or high-grade sprain (grade II injury). Extensor mechanism of knee: Mild tendinosis involves the patellar tendon. The quadriceps tendon is intact with a normal striated appearance. Muscles: Unremarkable. Soft tissues: Soft tissue edema surrounds the medial collateral ligament. IMPRESSION: 1. Complex tear of the medial meniscus posterior horn. 2. Horizontal tear of the lateral meniscus anterior horn and body. 3. Sprain of the medial collateral ligament (grade I injury). 4. Fibular collateral ligament low-grade partial-thickness tear or high-grade sprain (grade II injury). 5. Cartilaginous lesion in the distal femoral metaphysis measuring 0.8 x 1.5 x 1.9 cm with grossly similar size compared with 02/14/2018. Enchondroma favored. 6. Patchy heterogeneous bone marrow signal, with hematopoietic red bone ma
== END ==
PROVIDERS: Visit Provider Nurse Practitioner Family
DX: M25.562 Pain in left knee (principal); S83.242A Other tear of medial meniscus, current injury, left knee, initial encounter
CPT/HCPCS: 36415; 73723; 82565; 84520; A9576

== ENCOUNTER → 2022-04-08 16:46 | Outpatient (CLI) | payer OTHER, SELFPAY ==
--- NOTE | 2022-04-08 16:57 | XR_ITS ---
PROCEDURE INFORMATION: Exam: XR Lumbosacral Spine Exam date and time: 04/08/2022 5:01 PM Age: 51 years old Clinical indication: Low back pain; Additional info: Radiculopathy. Pain for a while. No new trauma TECHNIQUE: Imaging protocol: XR of the lumbosacral spine. Views: 6 or more views. Including flexion and extension views. COMPARISON: No relevant prior studies available. FINDINGS: Bones/joints: Spondylosis which is most advanced and severe at L5-S1. Visualized vertebral body heights maintained. Multilevel facet arthrosis. No significant dynamic instability on flexion and extension imaging. Soft tissues: Unremarkable. Gastrointestinal tract: Moderate colonic feces. Vasculature: Slight vascular calcifications. IMPRESSION: No acute process.
== END ==
PROVIDERS: PCP Family Medicine; Visit Provider Pain Medicine Interventional Pain Medicine
DX: M54.16 Radiculopathy, lumbar region (principal); Z79.899 Other long term (current) drug therapy
CPT/HCPCS: 72114

== ENCOUNTER 2022-05-03 16:01 | Emergency (ER) | payer OTHER, SELFPAY ==
[2022-05-03 16:02] VITALS: BP 137/88; PULSE 103; RESP 20; TEMP 36.9; O2SAT 97; BMI 33.6
--- NOTE | 2022-05-03 16:19 | XR_ITS ---
PROCEDURE INFORMATION: Exam: XR Left Foot Exam date and time: 05/03/2022 4:18 PM Age: 51 years old Clinical indication: Injury or trauma; Fall; Blunt trauma; Patient HX: Left foot trauma. ; Additional info: Rolled, swollen, bruised, painful TECHNIQUE: Imaging protocol: XR Left foot. Views: 3 or more views. COMPARISON: CR [id number] XR foot LT min 3V 02/14/2018 5:40 PM FINDINGS: Bones/joints: Cortical irregularity dorsal aspect of the navicular bone. Findings most compatible with an accessory ossicle. If the patient is symptomatic in this region, a avulsion fracture could not be entirely excluded. Soft tissues: Mild diffuse soft tissue swelling. IMPRESSION: 1. No evidence of acute osseous injury. 2. Findings most compatible with accessory ossicle dorsal aspect of the navicular bone. Clinically correlate to exclude symptoms in this region. 3. Diffuse soft tissue swelling.
--- NOTE | 2022-05-03 16:19 | XR_ITS ---
PROCEDURE INFORMATION: Exam: XR Left Ankle Exam date and time: 05/03/2022 4:21 PM Age: 51 years old Clinical indication: Injury or trauma; Fall; Blunt trauma; Patient HX: Trauma to left ankle. ; Additional info: Rolled, bruised, swollen, painful TECHNIQUE: Imaging protocol: XR Left ankle. Views: 3 or more views. COMPARISON: CR XR FOOT LT MIN 3V 05/03/2022 4:18 PM FINDINGS: Bones/joints: Acute oblique fracture distal fibular diaphysis 7 cm above the tibial talar articulation. 2 mm overlap of the fracture fragments. Soft tissues: Diffuse soft tissue swelling. IMPRESSION: 1. Acute fracture distal fibular diaphysis 7 cm above the tibiotalar articulation. 2. Soft tissue swelling.
--- NOTE | 2022-05-03 16:20 | PC.NURSE ---
Notified rad of images needed
--- NOTE | 2022-05-03 16:50 | HMH.EDGENADL ---
ED Disposition Clinical Impression: Fracture, fibula Qualifiers: Encounter type: initial encounter Fibula location: shaft Fracture type: closed Fracture morphology: comminuted Fracture alignment: displaced Laterality: left Qualified Code(s): S82.452A - Displaced comminuted fracture of shaft of left fibula, initial encounter for closed fracture Ankle joint instability Qualifiers: Laterality: left Qualified Code(s): M25.372 - Other instability, left ankle Disposition: Home, Self-Care Condition on Discharge: Fair Instructions: How to Take Care of Your Splint, How to Use Crutches, DI for Ankle Fracture Additional Instructions: Crutches and splint until seen by Dr. Manzano on Wednesday. No weightbearing on your left leg. Call Dr. Manzano's office tomorrow to make an appointment to be seen on Wednesday of this week. Ice 20 minutes 4-5 times a day, elevate your leg. Percocet as needed for pain more severe pain, DO NOT TAKE HYDROCODONE WHILE TAKING PERCOCET. You may take hydrocodone instead for less severe pain. Additional instructions for FRACTURED (BROKEN) BONE: See Dr. Manzano on Wednesday. Treat your splint like you would a cast: Do not get it wet (cover with a plastic bag while bathing or showering). If the splint feels too tight, you may loosen the manasa wrap covering it, but do not remove the splint. You may ice the fracture by applying an ice pack over the top of the splint, without removing the splint. Return to an emergency department immediately if you have uncontrollable pain, loss of feeling or inability to move your injured extremity. Additional instructions for CONTROLLED SUBSTANCES: You have been prescribed a medication that is a controlled substance. Controlled substances include pain medications known as opiates and sedative nerve medications known as benzodiazepines. Tramadol, fioricet, and gabapentin are also controlled substances. Some common opiates include: Codeine (such as Tylenol #3) Hydrocodone (Vicodin, Lortab, Lorcet, [place]) Oxycodone (Percocet, Percodan, Oxycodone, Oxy IR) Some common benzodiazepines include: Diazepam (Valium) Lorazepam (Ativan) Alprazolam (Xanax) Clonazepam (Klonopin) Oxazepam (Serax) All of these controlled substances are highly addictive and frequently abused. Misuse can and frequently does lead to addiction as well as overdose and . Medication should be stored in a locked cabinet or other secure storage unit. Do not store the medication in a motor vehicle. Short term supplies, 3 days or less, are prescribed because of the highly addictive nature of the medication. Any of the controlled substance medication NOT taken should be disposed of properly and NOT SAVED. The recommended method of disposing of unused medications is: Place the medicines in a sealable plastic bag. If the medicine is a solid, crush it or add water to dissolve it. Add something undesirable (cat litter, coffee grounds, etc.) Dispose of sealed bag in household trash Do not flush or pour unused medicines down a sink or drain. Controlled substances should not be shared, given away or sold. Because of the addictive nature and frequent abuse, these medications are sometimes stolen. These medications should be kept in a safe place where they cannot be stolen. Do not keep them in your car or purse. Lost or stolen prescriptions for controlled substances WILL NOT BE REFILLED in this emergency department, regardless of whether a police report was filed. Prescriptions: Oxycodone HCl/Acetaminophen [Percocet 7.5-325 mg Tablet] 1 each PO Q6HP PRN #20 tablet PRN Reason: Moderate To Severe Pain Transmission Status: Sent to [id number] Referrals: Kaitlyn Avendaño APRN [Primary Care Provider] - Julián Manzano JR, MD [Physician] - - Critical Care Critical Care Time: No Attestation: On 05/03/22, the high probability of a clinically significant, sudden or life threatening deterioration o
--- NOTE | 2022-05-03 16:59 | PC.NURSE ---
Dr Yoder speaking with Dr Manzano
--- NOTE | 2022-05-03 17:02 | CT_ITS ---
PROCEDURE INFORMATION: Exam: CT Left Lower Extremity Without Contrast, Ankle Exam date and time: 05/03/2022 5:13 PM Age: 51 years old Clinical indication: Difficulty in walking; Additional info: FX fibula, unstable ligamentous ankle injury TECHNIQUE: Imaging protocol: CT of the Left lower extremity without contrast was performed. Exam focused on the ankle. 3D rendering (Not supervised by radiologist): MIP and/or 3D reconstructed images were created by the technologist. Radiation optimization: All CT scans at this facility use at least one of these dose optimization techniques: automated exposure control; mA and/or kV adjustment per patient size (includes targeted exams where dose is matched to clinical indication); or iterative reconstruction. COMPARISON: CR XR ANKLE LT MIN 3V 05/03/2022 4:21 PM FINDINGS: Bones/joints: There is a transverse oblique comminuted fracture of the distal fibular diaphysis with associated butterfly fragment. No significant distraction of the fracture fragments is demonstrated. The superior most aspect of the fracture is 10 cm proximal to the tip of the fibula. Findings demonstrated on series 1002, image number 40. No additional fractures are demonstrated. There is an accessory ossicle adjacent to the tip of the lateral malleolus as well as along the dorsal aspect of the navicular bone. There is mild widening of the syndesmosis. Soft tissues: There is diffuse subcutaneous edema. Injury to the anterior talofibular ligament could not be excluded. IMPRESSION: 1. Transverse oblique comminuted fracture distal fibular diaphysis. Associated butterfly fragment. No significant distraction. 2. Mild widening of the syndesmosis. Findings suspicious for injury. 3. Diffuse subcutaneous edema. Could not exclude injury to the anterior talofibular ligament. 4. Recommendations: consider follow-up follow-up tendinous and ligamentous evaluation with magnetic resonance imaging if appropriate.
[2022-05-03 19:09] VITALS: BP 129/82; PULSE 99; RESP 18; TEMP 36.9; O2SAT 99
== END 2022-05-03 19:13 | disposition home or self-care (01) ==
PROVIDERS: Emergency Provider Emergency Medicine; PCP Nurse Practitioner Family
DX: S82.452A Displaced comminuted fracture of shaft of left fibula, initial encounter for closed fracture (principal); X50.1XXA Overexertion from prolonged static or awkward postures, initial encounter; Y92.89 Other specified places as the place of occurrence of the external cause; E11.9 Type 2 diabetes mellitus without complications; Z87.891 Personal history of nicotine dependence
CPT/HCPCS: 29515; 73610; 73630; 73700; 99284; J2405

== ENCOUNTER → 2022-05-13 08:07 | Outpatient (CLI) | payer OTHER, SELFPAY ==
[2022-05-13 08:49] LABS: Basophils # 0.2 K/mm3 (0-0.2); Basophils % 1.6 % (0.1-2.0); Eosinophils # 0.1 K/mm3 (0.0-0.4); Eosinophils % 0.7 % (0.1-12.0); Hematocrit 47.4 % (37.0-47.0); Hemoglobin 15.7 g/dL (12.2-16.2); Lymphocytes # 2.6 K/mm3 (0.7-4.5); Lymphocytes % 26.5 % (10-50); Mean Corpuscular HGB Conc 33.1 g/dL (31.8-35.4); Mean Corpuscular Volume 90.5 fl (81-99); Mean Platelet Volume 7.1 fl (7.4-10.4); Monocytes # 0.5 K/mm3 (0.1-1.0); Monocytes % 5.3 % (1.7-9.3); Neutrophils # 6.5 K/mm3 (1.8-7.8); Neutrophils % 65.8 % (37.0-80.0); Platelet Count 447 K/mm3 (142-424); Red Blood Count 5.24 M/mm3 (4.20-5.40); Red Cell Distribution Width 13.5 % (11.5-17.5); White Blood Count 9.9 K/mm3 (4.8-10.8)
[2022-05-13 09:22] LABS: Chloride 99 mmol/L (98-107); Potassium 4.3 mmoL/L (3.5-5.1); Sodium 139 mmol/L (136-145)
[2022-05-13 09:24] LABS: Blood Urea Nitrogen 12 mg/dl (7-17); Estimated Glomerular Filt Rate 131 ml/min (>60); GFR (African American) 159 ML/MIN (>60)
[2022-05-13 09:25] LABS: Alanine Aminotransferase 22 U/L (12-78); Albumin Level 4.5 g/dl (3.5-5.0); Albumin/Globulin Ratio 1.7 (1.1-1.8); Alkaline Phosphatase 106 U/L (38-126); Anion Gap 10.3 mEq/L (5-15); Aspartate Amino Transferase 24 U/L (14-36); Bilirubin,Total 0.5 mg/dl (0.2-1.3); Calcium 10.3 mg/dl (8.4-10.2); Carbon Dioxide 34 mmol/L (22.0-30.0); Globulin 2.6 g/dL (1.3-3.2); Glucose 95 mg/dl (74-100); Total Protein,Serum 7.1 g/dl (6.3-8.2)
== END ==
PROVIDERS: PCP Nurse Practitioner Family; Visit Provider Orthopaedic Surgery
DX: Z01.812 Encounter for preprocedural laboratory examination (principal); Z20.822 Contact with and (suspected) exposure to COVID-19; S89.92XA Unspecified injury of left lower leg, initial encounter
CPT/HCPCS: 36415; 80053; 85025; C9803; U0003; U0005

== ENCOUNTER 2022-05-15 06:03 | Day surgery (SDC) | payer OTHER, SELFPAY ==
[2022-05-15] VITALS (14 sets, daily range): BP systolic 105–140; BP diastolic 47–91; PULSE 95–114; RESP 12–18; TEMP 36.1–43; O2SAT 92–100; BMI 33.6
--- NOTE | 2022-05-15 06:12 | XR_ITS ---
FINAL REPORT CLINICAL HISTORY: preop order, abn ekg COMPARISON: April 02, 2020 FINDINGS: Two views of the chest were obtained. The heart size and pulmonary vascularity are within normal limits. The mediastinum is normal. There is persistent bronchial wall thickening. There is no pneumothorax. The bony thorax is intact. IMPRESSION: Persistent bronchial wall thickening may represent bronchitis. Reviewed, Interpreted and Dictated by Moe Acuna III, MD Transcribed by Patrick Yan Authenticated and [facility]
--- NOTE | 2022-05-15 06:32 | ECG_ITS ---
APPROVED REPORT Exam: Resting ECG HR:102 bpm ECG Measurements Heart Rate 102 AXES OR 155 P 64 QRSd 89 QRS 65 QT 336 T 69 QTc 395 Conclusion SINUS TACHYCARDIA LOW QRS VOLTAGE IN PRECORDIAL LEADS [QRS DEFLECTION < 1.0 mV IN CHEST LEADS] NONSPECIFIC T-WAVE ABNORMALITY ABNORMAL RHYTHM ECG UNCONFIRMED REPORT Electronically signed by : Favio Villalobos MD 05/15/2022 15:34:42
[2022-05-15 06:34] LABS: Hemoglobin A1C 7.3 % (4.0-6.0)
[2022-05-15 06:54] LABS: POC Glucose,Bedside 222 (70-110)
[2022-05-15 06:58] LABS: Urine Pregnancy, HCG Qual. Negative (Negative)
--- NOTE | 2022-05-15 08:13 | P.PN_ITS ---
[facility] Anesthesia Checklist - Patient Identification Patient Identification: Arm Band, Verbal (Name & ) - Structural Data Admitted From: Home Planned Operative Procedure/s: Left Ankle ORIF Consent for Planned Operative Procedure(s) Verified: Yes Verified Documents: Surgical Consent - NPO Status Verified Time NPO: 00:00 - Chart Verification Results Verified: CBC, BMP - Additional verifications Anesthesia Reactions: No Hx Blood Transfusions: No Blood Transfusion Reaction: No - Airway Assessment C-Spine Mobility Assessed: Yes TMJ Mobility Assessed: Yes Dentition: Partials - Neurological Assessment Level of Consciousness: Awake, Alert, Appropriate - Anesthesia Plan Anesthesia Risk discussed: Yes ASA Class: II Anesthesia Type: General [facility] History I have reviewed the patient's past medical history: Yes Medical History: Reports:: Diabetes Mellitus Type 2 Denies:: Cancer, Diabetes Mellitus Type 1, Internal Pacemaker, MRSA, Seizures *Have you ever received a pneumonia vaccine?: No *Have you received a flu vaccine this season?: No Other Medical History: Denies: Blood Transfusion Reaction Anesthesia experience/problems:: none Laterality Cases: Bilateral: Carpal Tunnel Release Other Surgeries: No: Pacemaker Amputation: No Fractures: No - *Social History Last grade of school completed: Advanced degree Smoking Status: Current every day smoker Tobacco Type: cigarettes # Packs/Day (cigarettes): 1 Alcohol Intake: never Alcohol Intake Frequency:: holidays/special occasions only Substance Use Type: marijuana *Occupational Status:: unemployed Housing: house Household Members: spouse *Travel in the last 8 weeks: None Family Hx:: Heart Attack
--- NOTE | 2022-05-15 09:41 | XR_ITS ---
FINAL REPORT CLINICAL HISTORY: ORIF LEFT ANKLE fluoro time: 1.08 FINDINGS: Fluoroscopic guidance was provided for the operating services. Four spot films were provided. 1 minute 8 seconds of fluoroscopy time was utilized. Postoperative changes are seen involving the ankle. IMPRESSION: 1 minute 8 seconds of fluoroscopy time. Reviewed, Interpreted and Dictated by Moe Acuna III, MD Transcribed by Patrick Yan Authenticated and [facility]
--- NOTE | 2022-05-15 10:36 | HMH.ANESI ---
[facility] Anesthesia Record Part I Intake, IV Amount: 800 Estimated blood loss (mL): 100 Urine output (mL): 0 Blood Pressure: 116/78 SaO2: 93 Pulse Rate: 112 Respiratory Rate: 12 Temperature: 97 F Patient is:: Drowsy Stable to PACU at:: 10:33
[2022-05-15 10:44] LABS: POC Glucose,Bedside 188 (70-110)
--- NOTE | 2022-05-15 11:02 | HMH.OPNOTE ---
Date of procedure: 05/15/22 Pre-op Diagnosis:: Left fibula fracture, suspected syndesmosis / deltoid ligament disruption. Post-op Diagnosis:: Left fibula fracture, syndesmosis / deltoid ligament disruption. Procedure performed:: 77808: Open treatment of left fibular shaft fracture with internal fixation 49291: Fluoroscopic stress test left ankle 95855: Open treatment left ankle syndesmosis 94803: Left ankle deltoid ligament repair Surgeon:: Julián Manzano JR, MD Anesthesia: GETA Estimated blood loss (mL): 50 Clinical Note:: 51-year-old female sustained [place] shaft fracture as a result of a fall last week. She subsequently underwent CT scan which demonstrated no medial malice or posterior malleolus fracture. Discussion with her regarding further management including nonoperative versus operative treatment. Given the unstable nature of her fracture, and good functional status preoperatively, she opted for operative fixation. I recommended open reduction internal fixation left fibula fracture with possible syndesmotic and deltoid ligament repair. She was amenable with the plan. We discussed the risk and benefits of surgery. Risks included but were not limited to pain, bleeding, infection, damage to adjacent structures, need for further surgery, wound healing complications, bleeding, malunion, posttraumatic arthritis loss of limb, . Patient expressed verbal consent and written consent was obtained for the above procedure. Operative findings:: Restored length, alignment, rotation of the fibula. Syndesmotic and deltoid instability with medial joint space widening and talar tilt greater than 10 degrees. Stable external rotation with no medial joint space widening/talar tilt after syndesmotic and deltoid repair. Operative note:: Patient was identified in preoperative holding. Operative site was marked in indelible ink. History, physical, consent were reviewed and updated. Patient was surrendered to the anesthesia team, taken to the operative suite, placed supine on a well-padded operative table. Ipsilateral hip bump was placed as was a nonsterile thigh tourniquet. Anesthesia was induced. The operative extremity was prepped and draped in the usual sterile fashion. The operative team donned sterile gowns and gloves and a timeout was called. All in attendance agreed regarding the patient's identity, procedure, operative site. Weight-based dose of antibiotics was given prior to incision. Lateral incision to the fibula. She had a large complex tattoo and I did everything I could to preserve the image, making the skin incision slightly oblique in areas more posteriorly so as to not disrupt the complicated tattoo. I dissected through skin and subcutaneous tissue, identified the fibular shaft fracture. I cleaned it of interposed periosteum and hematoma, obtained provisional fixation of the butterfly fragment with claw clamps. I placed two 2.7 mm lag screws by technique across the fracture sites. I then selected a 17 hole precontoured lateral fibular plate, and spanned the fracture site with 6 cortices of fixation proximally, 10 cortices of fixation distally. After completing fixation of the fibular shaft fracture, I performed an external rotation stress test and talar tilt tests of the ankle, noted significant medial joint space and syndesmotic widening as well as talar tilt greater than 10 degrees. I placed a syndesmotic clamp, confirmed fluoroscopically, and visually that the syndesmosis was reduced. I placed 2 syndesmotic screws parallel to the joint across 4 cortices. There was still persistent talar tilt but no medial joint space widening at this point. As such, I dissected the medial skin and subcutaneous tissues, identified the frayed deltoid ligament fibers, placed a suture anchor in the medial malleolus, and repaired the deep and superficial fibers of the deltoid ligament with suture tape, talar tilt test demonstrated no signifi
--- NOTE | 2022-05-15 11:26 | SUR.PHASEI ---
1023- During report, Ivan Mckeon CRNA stated if pt pain uncontrolled with another 2 mg dilaudid, the only option would be to block her. 1113- report given to Volodymyr Madison RN, I explained I've spoken with Ivan regarding pt uncontrolled pain after 2 mg of dilaudid in pacu. pt continues to rate pain a 9 or 10/10. At this time, no more IV pain medication is to be given. If pt is in agreement, a block could be done in post op prior to discharge. 1129- Opal foster CRNA in post op to speak with pt.
--- NOTE | 2022-05-15 12:21 | SUR.PREOP ---
1150 Pt pain at 6, crying and hysterical. Anesthesia at bedside. Opal Mckeon performing tc block.
--- NOTE | 2022-05-18 08:30 | P.PN_ITS ---
[facility] Anesthesia Record Part II Discharge Time: 10:53 Destination: [facility] PACU nurse assessment reviewed?: Yes Patient Condition:: Good Anesthesia Complications:: None Swallowing reflex intact?: Yes Cyanosis?: No Blood Pressure: 115/70 Pulse Rate: 102 Temperature: 97.0 F Mental Status: Alert & Oriented Pain level:: 10 Nausea and/or vomitting:: None Intake, IV Amount: 1,200
[2022-05-18 08:31] VITALS: BP 115/70; PULSE 102; TEMP 36.1
== END 2022-05-15 12:20 | disposition home or self-care (01) ==
LOC: OR 06:06
PROVIDERS: PCP Nurse Practitioner Family; Visit Provider Orthopaedic Surgery
PROC: (CPT 27784; principal; 2022-05-15 07:30)
DX: S82.492A Other fracture of shaft of left fibula, initial encounter for closed fracture (principal); W01.0XXA Fall on same level from slipping, tripping and stumbling without subsequent striking against object, initial encounter; Y92.017 Garden or yard in single-family (private) house as the place of occurrence of the external cause; E11.9 Type 2 diabetes mellitus without complications; Z79.84 Long term (current) use of oral hypoglycemic drugs; F17.210 Nicotine dependence, cigarettes, uncomplicated
CPT/HCPCS: 27784; 27695; 71046; 73600; 76000; 81025; 82962; 83036; 93005; 96374; C1713; C1776; J2405

== ENCOUNTER → 2022-05-29 11:26 | Outpatient (CLI) | payer OTHER, SELFPAY ==
--- NOTE | 2022-05-29 11:30 | XR_ITS ---
FINAL REPORT CLINICAL HISTORY: ORIF lt ankle COMPARISON: May 03, 2022 FINDINGS: LEFT ANKLE: Three views of the left ankle were obtained. There are interval postoperative changes from ORIF of a distal fibula fracture. A screw plate and multiple screws are present. A cast is present. The joint spaces and mortise are intact. There is no soft tissue abnormality. IMPRESSION: Postoperative changes with no acute bony abnormality. Reviewed, Interpreted and Dictated by Moe Acuna III, MD Transcribed by Johanne Mejia Authenticated and [facility]
== END ==
PROVIDERS: PCP Nurse Practitioner Family; Visit Provider Orthopaedic Surgery
DX: S82.452D Displaced comminuted fracture of shaft of left fibula, subsequent encounter for closed fracture with routine healing (principal)
CPT/HCPCS: 73610

== ENCOUNTER 2022-05-29 12:37 | Outpatient (RCR) | payer OTHER, SELFPAY | END 2022-05-29 13:30 | disposition home or self-care (01) | LOC: PT 12:37 | PROVIDERS: Visit Provider Orthopaedic Surgery | DX: S82.452D Displaced comminuted fracture of shaft of left fibula, subsequent encounter for closed fracture with routine healing (principal) | CPT/HCPCS: 97760 ==

== ENCOUNTER → 2022-06-26 11:02 | Outpatient (CLI) | payer OTHER, SELFPAY ==
--- NOTE | 2022-06-26 11:06 | XR_ITS ---
FINAL REPORT CLINICAL HISTORY: s/p ORIF lt ankle FINDINGS: AP, oblique, and lateral views of the left ankle were obtained. Comparison is made to a prior exam dated May 29, 2022. There are postoperative changes from ORIF of the distal fibula. The hardware appears stable without complication. There is no fracture or dislocation. There is degenerative disease at the ankle. There continues to be mild soft tissue edema. IMPRESSION: Stable postoperative changes. Reviewed, Interpreted and Dictated by Vanessa Zhou MD Transcribed by Patrick Yan Authenticated and [facility]
== END ==
PROVIDERS: PCP Nurse Practitioner Family; Visit Provider Orthopaedic Surgery
DX: S82.402A Unspecified fracture of shaft of left fibula, initial encounter for closed fracture (principal)
CPT/HCPCS: 73610

== ENCOUNTER → 2022-09-04 10:28 | Outpatient (CLI) | payer OTHER, SELFPAY ==
--- NOTE | 2022-09-04 10:34 | XR_ITS ---
FINAL REPORT CLINICAL HISTORY: lt ankle fracture COMPARISON: June 26, 2022 FINDINGS: LEFT ANKLE Three views of the left ankle were obtained. There are postoperative changes of the distal tibia and fibula with a screw plate and multiple screws. There is increased lucency surrounding the screws in the distal tibia and loosening cannot be excluded. There is a chronic appearing distal fibular fracture. There is moderate degenerative change in the ankle with chronic calcifications medially and laterally which may represent loose bodies. There are moderate degenerative changes of the midfoot and calcaneal spurs. IMPRESSION: Postoperative change as above with increased lucency surrounding the screws in the distal tibia, loosening cannot be excluded. Moderate degenerative changes with no new bony abnormality. Reviewed, Interpreted and Dictated by Moe Acuna III, MD Transcribed by Ivon Lakhani Authenticated and [facility]
== END ==
PROVIDERS: PCP Nurse Practitioner Family; Visit Provider Orthopaedic Surgery
DX: S82.402A Unspecified fracture of shaft of left fibula, initial encounter for closed fracture (principal)
CPT/HCPCS: 73610

== ENCOUNTER 2022-09-25 16:00 | Outpatient (RCR) | payer OTHER, SELFPAY ==
--- NOTE | 2022-07-27 09:31 | HMH.PTOPEV ---
PT Outpatient Evaluation Rehab PT Outpatient Evaluation Start: 07/27/22 09:24 Freq: Status: Active Protocol: Document 07/27/22 09:24 ROS (Rec: 07/27/22 09:31 ROS [id number]) E-signed By Praveen Gardner, PT Outpatient Therapy Subjective History Subjective History Pt presents s/p left ankle ORIF, fib fx, deltoid lig repair. Pt reports injury in ' early April, surgery a couple weeks after.' Pt reports normal post-op swelling, pain on medial aspect, and some hypersensitivity to cold on lateral aspect of left ankle. Pt also reports some weakness in left ankle, and fatigue quickly with household care. Chief Complaint Pain,Stiff,Swelling, Paresthesia,Weakness Symptom Type Ache,Sharp,Dull Symptoms Relieved By Rest/Positioning,Heat,Ice Symptoms Aggravated By Standing,Walking Prior Functional Limitations None Current Functional Limitations Housework,Standing,Walking, Stairs Symptom Description Constant but Variable Level of pain today (0-10) 6 Pain scale - at its best (0-10) 4 Pain scale - at its worst (0-10) 6 Ankle/Foot Eval Gait Observation General Gait Pattern Observation Wide Based Gait Palpation Tenderness left Ankle/Foot Palpation Overall Comment 3/4 medial-deltoid area, 2/4 peroneals ROM Ankle/Foot Dorsiflexion w/Knee Extended 0-8 Active Range Motion (degrees) Ankle/Foot Plantar Flexion Active Range 0-35 of Motion (degrees) Ankle/Foot Eversion Active Range of 0-10 Motion (degrees) Ankle/Foot Inversion Active Range of 0-30 Motion (degrees) MMT Ankle Dorsiflexion Strength Grade 4 Good Ankle Plantarflexion Strength Grade 4 Good Foot Eversion Strength Grade 4- Good- Foot Inversion Strength Grade 4- Good- Outpatient Therapy Assessment Impairments Problems/Impairmments Palpation Tenderness,Impaired Range of Motion,Impaired Strength,Impaired Endurance, Impaired Gait Pattern,Impaired Walking,Impaired Standing, Impaired Household Care, Impaired Stair Climbing, Subjective C/O Pain,Impaired Self Care/Self Management Prognosis Rehab Potential Good Clinical Impression Consisten
--- NOTE | 2022-08-25 15:31 | HMH.RHREAS ---
Rehab Reassessment Rehab OP Re-assessment Start: 08/25/22 15:15 Freq: Status: Active Protocol: Document 08/25/22 15:17 ROS (Rec: 08/25/22 15:30 ROS [id number]) E-signed By Praveen Gardner, PT Rehab Re-assessment Subjective Subjective Pt reports 4/10 left ankle pain at rest and w/activity on VAS, and reports compliance w /HEP Objective Objective Notes AROM: LEFT ANKLE DF 0-10, PF 0 -31, INV 0-30, EVR 0-10 MMT: LEFT ANKLE DF 4+/5, PF 4- 4+/5, INV 4--4/5, EVR 4--4/5 TTP: LEFT DELTOID LIG 3/4, LEFT DISTAL FIB/PERONEALS 0-1/ 4 GAIT: ANTALGIC W/FIG 8 LACE-UP BRACE ON L ANKLE Assessment Progress Assessment Slower Than Expected Assessment Notes SLIGHTLY IMPROVED LEFT ANKLE STRENGTH SINCE I EVAL Patient goals met STG'S 04/06 Goals Not Met STG'S 03/07, LTG'S 09/07 Plan Plan Pt to continue w/skilled P.T. to make further improvements in left ankle strength, ROM, TTP, and gait to allow for optimal function Frequency of Therapy 2-3x/wk Duration of therapy 4-6 wks Time and Billing Re-Eval Time 12 Re-Eval Billing Units 1 PHYSICIAN CERTIFICATION: I certify the specified therapy services for Vannesa Franco are required, authorized, and reviewed every 30 days.
== END 2022-09-25 16:05 | disposition home or self-care (01) ==
LOC: PT 16:00
PROVIDERS: PCP Nurse Practitioner Family; Visit Provider Orthopaedic Surgery
DX: S82.402D Unspecified fracture of shaft of left fibula, subsequent encounter for closed fracture with routine healing (principal)
CPT/HCPCS: 97010; 97014; 97110; 97112; 97140; 97163; 97164; 97760; G0283

== ENCOUNTER 2022-10-14 18:18 | Emergency (ER) | payer OTHER, SELFPAY ==
[2022-10-14 19:06] VITALS: BP 177/87; PULSE 109; RESP 18; TEMP 36.8; O2SAT 99
--- NOTE | 2022-10-14 19:06 | XR_ITS ---
PROCEDURE INFORMATION: Exam: XR Left Ankle Exam date and time: 10/14/2022 7:04 PM Age: 52 years old Clinical indication: Pain; Ankle; Left; Prior surgery; Surgery date: 1-6 months; Additional info: Pain, surgical screws backing out TECHNIQUE: Imaging protocol: Radiologic exam of the Left ankle. Views: 3 or more views. COMPARISON: CR XR ANKLE LT MIN 3V 09/04/2022 10:34 AM FINDINGS: Bones/joints: Calcaneus enthesophytes. Plate and screws along the lateral aspect of the mid to distal fibula. There are multiple screws in the fibula. Chronic, healed distal fibular diaphyseal fracture. Significant lucency around the screws in the distal tibial metaphysis. This appears similar to prior study, but suggests infection or loosening. Soft tissues: Mild soft tissue edema around the distal calf and ankle. IMPRESSION: Significant lucency around the screws in the distal tibial metaphysis. This appears similar to prior study, but suggests infection or loosening.
--- NOTE | 2022-10-14 19:09 | HMH.EDGENADL ---
Discharge Plan Disposition Patient Disposition: Home, Self-Care Condition: Good Prescriptions Prescriptions: New hydrocodone-acetaminophen 5-325 mg tablet 1 tab PO Q6H PRN (Reason: pain) Qty: 10 0RF No Action tramadol 50 mg tablet 50 mg PO Q8H PRN (Reason: pain) Qty: 30 0RF oxycodone 5 mg tablet 5 mg PO Q8H PRN (Reason: pain) Qty: 30 0RF hydrocodone-acetaminophen 5-325 mg tablet 1 tab PO Q4-6H PRN (Reason: pain) Qty: 30 0RF oxycodone 5 MG tablet 5 mg PO Q4HP PRN (Reason: Moderate To Severe Pain) Qty: 30 0RF meloxicam 15 tablet 15 mg PO DAILY triamterene-hydrochlorothiazid 1 EACH tablet 1 each PO DAILY aspirin 81 MG tablet,chewable 81 mg PO DAILY sitagliptin phosphate 25 MG tablet 25 mg PO DAILY empagliflozin 25 MG tablet 25 mg PO DAILY Referrals Follow up/Referrals: Kaitlyn Avendaño APRN [Primary Care Provider] - See instructions Activity Restrictions/Add. Instructions Additional Instructions/Restrictions: Use crutches as needed. Take Bradford as needed for pain. You should receive a call from Dr. Manzano's office tomorrow, possibly from [place] or [place], to reschedule your appointment, hopefully for this 10/16/2022. Additional instructions for CONTROLLED SUBSTANCES: You have been prescribed a medication that is a controlled substance. Controlled substances include pain medications known as opiates and sedative nerve medications known as benzodiazepines. Tramadol, fioricet, and gabapentin are also controlled substances. Some common opiates include: Codeine (such as Tylenol #3) Hydrocodone (Vicodin, Lortab, Lorcet, Bradford) Oxycodone (Percocet, Percodan, Oxycodone, Oxy IR) Some common benzodiazepines include: Diazepam (Valium) Lorazepam (Ativan) Alprazolam (Xanax) Clonazepam (Klonopin) Oxazepam (Serax) All of these controlled substances are highly addictive and frequently abused. Misuse can and frequently does lead to addiction as well as overdose and . Medication should be stored in a locked cabinet or other secure storage unit. Do not store the medication in a motor vehicle. Short term supplies, 3 days or less, are prescribed because of the highly addictive nature of the medication. Any of the controlled substance medication NOT taken should be disposed of properly and NOT SAVED. The recommended method of disposing of unused medications is: Place the medicines in a sealable plastic bag. If the medicine is a solid, crush it or add water to dissolve it. Add something undesirable (cat litter, coffee grounds, etc.) Dispose of sealed bag in household trash Do not flush or pour unused medicines down a sink or drain. Controlled substances should not be shared, given away or sold. Because of the addictive nature and frequent abuse, these medications are sometimes stolen. These medications should be kept in a safe place where they cannot be stolen. Do not keep them in your car or purse. Lost or stolen prescriptions for controlled substances WILL NOT BE REFILLED in this emergency department, regardless of whether a police report was filed. Clinical Impressions Clinical Impression: Loosening of orthopedic screw, Acute left ankle pain Discharge ED Provider: Bernard Yoder General Adult HPI General Chief complaint: Extremity Injury, Lower Stated complaint: surg 06/19 screws coming out L leg Time Seen by Provider: 10/14/22 19:01 History of Present Illness HPI narrative: Patient complains of left ankle pain. She fractured her ankle this past summer and had surgery in May by Dr. Manzano. She says that she has had pain in the medial ankle in the region of her medial incision for about a month that is worsening. Last time she saw Dr. Manzano was about a month ago and he told her that the screws were backing out. He wanted to see her in 1 month and reevaluate it. She had an appointment this past Wednesday 5 days ago, but the
--- NOTE | 2022-10-14 19:27 | PC.NURSE ---
paged Dr Manzano at this time
--- NOTE | 2022-10-14 19:30 | PC.NURSE ---
speaking with Dr Manzano at this time
[2022-10-14 20:08] VITALS: BP 144/65; PULSE 85; RESP 20; TEMP 36.7; O2SAT 97
== END 2022-10-14 20:19 | disposition home or self-care (01) ==
PROVIDERS: Emergency Provider Emergency Medicine; PCP Nurse Practitioner Family
DX: M25.572 Pain in left ankle and joints of left foot (principal); Z79.1 Long term (current) use of non-steroidal anti-inflammatories (NSAID); Z79.82 Long term (current) use of aspirin; Z79.899 Other long term (current) drug therapy
CPT/HCPCS: 73610; 99283

== ENCOUNTER → 2022-11-06 07:54 | Outpatient (CLI) | payer OTHER, SELFPAY ==
--- NOTE | 2022-11-06 07:57 | XR_ITS ---
FINAL REPORT CLINICAL HISTORY: Lt ankle pain, sx in april COMPARISON: October 14, 2022 FINDINGS: LEFT ANKLE: Three views of the left ankle were obtained. Postoperative changes are again seen involving the mid and distal fibula and distal tibia. There is a screw plate and multiple screws. There is significant lucency surrounding the screws in the distal tibia. Loosening cannot be excluded. There is a chronic fracture of the distal fibula, stable. There are soft tissue calcifications adjacent to the medial malleolus, talonavicular joint in inferior to the lateral and medial malleoli. Calcaneal spurs are present. IMPRESSION: Stable postoperative changes with lucency surrounding distal tibia screws. Hardware loosening cannot be excluded. Reviewed, Interpreted and Dictated by Moe Acuna III, MD Transcribed by Patrick Yan Authenticated and [facility]
[2022-11-06 09:05] LABS: Microscopic, Urine URINE MICROSCOPIC (MICROSCOPIC)
[2022-11-06 09:44] LABS: Basophils # 0.1 K/mm3 (0-0.2); Basophils % 0.9 % (0.1-2.0); Eosinophils # 0.1 K/mm3 (0.0-0.4); Eosinophils % 1.2 % (0.1-12.0); Hematocrit 45.7 % (37.0-47.0); Lymphocytes % 29.6 % (10-50); Mean Corpuscular HGB Conc 30.6 g/dL (31.8-35.4); Mean Corpuscular Hemoglobin 28.3 pg (27.0-31.2); Mean Corpuscular Volume 92.4 fl (81-99); Mean Platelet Volume 7.4 fl (7.4-10.4); Monocytes # 0.5 K/mm3 (0.1-1.0); Neutrophils # 6.4 K/mm3 (1.8-7.8); Neutrophils % 63.2 % (37.0-80.0); Platelet Count 451 K/mm3 (142-424); Red Blood Count 4.95 M/mm3 (4.20-5.40); Red Cell Distribution Width 13.7 % (11.5-17.5); White Blood Count 10.2 K/mm3 (4.8-10.8)
[2022-11-06 10:19] LABS: Chloride 99 mmol/L (98-107); Potassium 4.3 mmoL/L (3.5-5.1); Sodium 137 mmol/L (136-145)
[2022-11-06 10:22] LABS: Alanine Aminotransferase 17 U/L (12-78); Albumin Level 4.4 g/dl (3.5-5.0); Albumin/Globulin Ratio 1.8 (1.1-1.8); Alkaline Phosphatase 101 U/L (38-126); Anion Gap 11.3 mEq/L (5-15); Aspartate Amino Transferase 19 U/L (14-36); Bilirubin,Total 0.2 mg/dl (0.2-1.3); Blood Urea Nitrogen 16 mg/dl (7-17); Carbon Dioxide 31 mmol/L (22.0-30.0); Estimated Glomerular Filt Rate 106 ml/min (>60); GFR (African American) 128 ML/MIN (>60); Globulin 2.5 g/dL (1.3-3.2); Total Protein,Serum 6.9 g/dl (6.3-8.2)
[2022-11-06 10:23] LABS: Calcium 10.1 mg/dl (8.4-10.2); Glucose 114 mg/dl (74-100)
[2022-11-06 10:32] LABS: Appearance,Urine CLEAR (Clear); Bilirubin,Urine Negative (Negative); Blood, Urine 3+ (Negative); Color,Urine YELLOW (Yellow); Glucose,Urine (UA) 3+ (Negative); Ketones,Urine Negative (Negative); Leukocyte Esterase,Urine Negative (Negative); Nitrate,Urine Negative (Negative); Protein,Urine Negative (Negative); Urobilinogen,Urine 0.2 EU/dl (0.2)
[2022-11-06 10:44] LABS: Bacteria,Urine Trace /lpf; Squamous Epithelial Cell,Urine Occasional #/hpf (0-5)
== END ==
PROVIDERS: PCP Nurse Practitioner Family; Visit Provider Orthopaedic Surgery
DX: Z01.818 Encounter for other preprocedural examination (principal); M25.572 Pain in left ankle and joints of left foot
CPT/HCPCS: 36415; 73610; 80053; 81001; 85025

== ENCOUNTER → 2022-11-11 10:26 | Outpatient (CLI) | payer OTHER, SELFPAY ==
--- NOTE | 2022-11-11 10:27 | CT_ITS ---
FINAL REPORT CLINICAL HISTORY: ankle pain, hardware backing out, sx for fx lateral side and ligament repair medial FINDINGS: CT LEFT ANKLE WITHOUT CONTRAST Technique: Axial images through the left ankle were performed by computed tomography. Sagittal and coronal reconstruction images were performed. This study was performed with techniques to keep radiation doses as low as reasonably achievable (ALARA). Individualized dose reduction techniques using automated exposure control or adjustment of mA and/or kV according to the patient's size were employed. There is a side plate and multiple screws securing the fibula with 2 screws in the distal tibia. There is lucency adjacent to the tibial screws measuring up to 2 mm borderline for loosening. There is postoperative change of the medial malleolus. There is a chronic fracture of the distal fibula. There is a chronic calcification adjacent to the medial talus and inferior to the lateral malleolus. There are calcaneal spurs. Mild degenerative changes are present. There is a small tibiotalar joint effusion. IMPRESSION: Lucency adjacent to tibial screws borderline for loosening. Postoperative and degenerative changes. Reviewed, Interpreted and Dictated by Moe Acuna III, MD Transcribed by Patrick Yan Authenticated and [facility]
== END ==
PROVIDERS: PCP Nurse Practitioner Family; Visit Provider Orthopaedic Surgery
DX: M25.572 Pain in left ankle and joints of left foot (principal)
CPT/HCPCS: 73700

== ENCOUNTER 2022-11-13 07:08 | Day surgery (SDC) | payer OTHER, SELFPAY ==
[2022-11-12 13:44] VITALS: BMI 32.5
[2022-11-13] VITALS (19 sets, daily range): BP systolic 109–167; BP diastolic 64–91; PULSE 81–96; RESP 12–18; TEMP 36.1–36.8; O2SAT 92–99; BMI 32.5
--- NOTE | 2022-11-13 07:20 | XR_ITS ---
FINAL REPORT CLINICAL HISTORY: preop, cough, smoker COMPARISON: May 15, 2022 FINDINGS: A single portable view of the chest was obtained. The heart size and pulmonary vascularity are within normal limits. The lungs are clear. The bony thorax is intact. IMPRESSION: No active cardiopulmonary disease. Authenticated and [facility]
[2022-11-13 07:54] LABS: POC Glucose,Bedside 177 (70-110)
[2022-11-13 08:13] LABS: Urine Pregnancy, HCG Qual. Negative (Negative)
[2022-11-13 08:23] LABS: C-Reactive Protein 5.4 mg/L (0-4)
[2022-11-13 09:41] LABS: Erythrocyte Sedimentation Rate 8 mm/hr (0-20)
--- NOTE | 2022-11-13 10:05 | EXP.HP ---
History of Present Illness *Admission Date: 11/13/22 *Reason for visit:: Left ankle hardware loosening *History of present illness: 52-year-old female status post open reduction internal fixation bimalleolar equivalent ankle fracture, high Vasquez C fibula fracture, with syndesmotic screws and deltoid ligament repair. She developed screw loosening, subsequent ankle pain. Radiographs demonstrated a healed fibula fracture, subsequent CT scan confirmed healed fibula fracture with subtle malalignment of the syndesmosis. EMG demonstrated common peroneal nerve pathology. CRP was mildly elevated. [facility] Disclaimer: The information contained in this section may have been updated after the patient was seen, as this information can be updated by other users. Medical History History of diabetes mellitus History of edema Surgical History History of ankle surgery History of carpal tunnel release Family History Other Family history of CVA Family history of diabetes mellitus Family history of heart disease Social History Smoking Status: Current every day smoker tobacco type: cigarettes packs per day: 1 second hand exposure: No alcohol intake: never substance use type: marijuana current occupational status: unemployed Travel in the last 8 weeks: None household members: spouse housing: house current occupational exposures/hazards: No caffeine: Yes Review of Systems Review of Systems Review of systems:: unable to obtain Constitutional Constitutional: Reports system reviewed and no additional complaints, except as documented Eyes Eyes: Reports system reviewed and no additional complaints, except as documented ENT Ears, Nose, Mouth, and Throat: Reports system reviewed and no additional complaints, except as documented *Cardiovascular Cardiovascular: Reports system reviewed and no additional complaints, except as documented *Respiratory Respiratory: Reports system reviewed and no additional complaints, except as documented *Gastrointestinal Gastrointestinal: Reports system reviewed and no additional complaints, except as documented *Genitourinary Genitourinary: Reports system reviewed and no additional complaints, except as documented *Musculoskeletal Musculoskeletal: Reports arthralgias Integumentary/Breasts Skin/Breast: Reports system reviewed and no additional complaints, except as documented *Neurologic Neurologic: Reports system reviewed and no additional complaints, except as documented Psychiatric Psychiatric: Reports system reviewed and no additional complaints, except as documented Endocrine Endocrine: Reports system reviewed and no additional complaints, except as documented Hematologic/Lymphatic Hematologic/Lymphatic: Reports system reviewed and no additional complaints, except as documented Allergic/Immunologic Allergic/Immunologic: Reports system reviewed and no additional complaints, except as documented Meds Home Medications and Allergies Home Medications Medication Instructions Recorded Confirmed Type triamterene 37.5 1 each PO DAILY Fluid 04/23/19 11/06/22 History mg-hydrochlorothiazide 25 mg tablet sitagliptin phosphate 25 mg tablet 25 mg PO DAILY Diabetes 11/06/20 11/06/22 History empagliflozin 25 mg tablet 25 mg PO DAILY Diabetes 02/20/21 11/06/22 History bupropion HCl 150 mg tablet,12 hr 150 mg PO DAILY Depression 11/13/22 11/13/22 History sustained-release (Wellbutrin SR) citalopram 20 mg tablet (Celexa) 20 mg PO DAILY Depression 11/13/22 11/13/22 History New Prescriptions to Start Prescriptions: Allergies Allergy/AdvReac Type Severity Reaction Status Date / Time No Known Allergies Allergy Verified 11/06/22 08:35 Exam Data for Last 24 hours Vital signs and Labs for L
--- NOTE | 2022-11-13 10:30 | XR_ITS ---
FINAL REPORT CLINICAL HISTORY: LT ANKLE HARDWARE REMOVAL IN OR FT: 0:29 FINDINGS: FLUORO TIME PROCEDURE: Left ankle hardware removal in OR. FINDINGS: Fluoroscopy time was provided by the radiology department for the clinical service. Seven films were obtained. Fluoroscopy exposure time: 0.29 minute IMPRESSION: See above Reviewed, Interpreted and Dictated by Moe Acuna III, MD Transcribed by Ivon Lakhani Authenticated and [facility]
--- NOTE | 2022-11-13 10:45 | EXP.OP.NOTE ---
Date of procedure: 11/13/22 Pre-op Diagnosis:: Right syndesmotic screw loosening Post-op Diagnosis:: Same Procedure performed:: : Removal of syndesmotic screws 79991: Antibiotic cement placement impregnated with vancomycin and gentamicin 80272: Fluoroscopic stress examination left ankle Surgeon:: Julián Manzano JR, MD Supplier Manager(s):: Ayesha Almendarez PA-C FLAME CUTTING MACHINE OPERATOR HELPER:: Ivan Mckeon Anesthesia: GETA Estimated blood loss (mL): 3 Clinical Note:: 52-year-old female status post open reduction internal fixation left bimalleolar equivalent ankle fracture. She developed ankle pain and syndesmotic screw loosening. Her CRP was mildly elevated. CT scan demonstrated subtle syndesmotic malreduction, and EMG demonstrated common peroneal nerve pathology. She had no clinical signs or symptoms of infection throughout her healing process. I had a discussion with her regarding further management. We discussed expectant observation versus operative intervention. Given her persistent, progressive pain, she was interested in more durable intervention. I recommended left ankle syndesmotic screw removal with cultures, antibiotic cement placement given her elevated CRP. She was amenable with the plan. We discussed the risk and benefits of surgery. Risks included but were not limited to pain, bleeding, infection, damage to adjacent structures, need for further surgery, wound healing complications, loss of limb, . Patient expressed verbal consent and written consent was obtained for the above procedure. Operative findings:: Stress fluoroscopic ankle examination demonstrated syndesmotic widening Operative note:: Patient was identified in preoperative holding. Operative site was marked in indelible ink. History, physical, consent were reviewed and updated. Patient was surrendered to the anesthesia team, taken to the operative suite, placed supine on a well-padded operative table. Ipsilateral hip bump was placed as was a nonsterile thigh tourniquet. Anesthesia was induced. The operative extremity was prepped and draped in the usual sterile fashion. The operative team donned sterile gowns and gloves and a timeout was called. All in attendance agreed regarding the patient's identity, procedure, operative site. Weight-based dose of antibiotics was given prior to incision. I opened an approximately 2 cm incision laterally at the level of the syndesmotic screws, dissected through skin and subcutaneous tissue, identified the screw heads. I remove the syndesmotic screws and confirmed removal fluoroscopically. I took deep cultures swab specimen along the screw tracts, sent this for culture. I copiously irrigated the wound as well as the screw tracks. Then, under fluoroscopic guidance I placed antibiotic cement impregnated with vancomycin and gentamicin along the screw tracts. I performed an external rotation stress test which demonstrated syndesmotic widening. Wounds were closed in anatomic layers with monofilament absorbable suture. I injected 1/2% bupivacaine, 20 mL. Sterile dressings applied. Counts were correct x2. There were no apparent complications. I was present and scrubbed for the entire case. Tourniquet time (min): 36 Condition: stable Disposition: PACU Specimens:: Swab specimen sent for culture Complications:: None apparent.
--- NOTE | 2022-11-13 10:57 | P.PNANES_ITS ---
[facility] Anesthesia Record Part I Anesthesia Record I Intake, IV Amount: 800 Estimated blood loss (mL): 2 Urine output (mL): 0 Blood Pressure: 110/65 SaO2: 92 Pulse Rate: 81 Respiratory Rate: 12 Temperature: 97.1 F Patient is:: Drowsy Stable to PACU at:: 10:55
[2022-11-13 11:04] LABS: POC Glucose,Bedside 89 (70-110)
--- NOTE | 2022-11-13 11:28 | SUR.PHASEI ---
1058 BS obtained with result of Tammie Mckeon CRNA notified.
--- NOTE | 2022-11-13 12:31 | SUR.PHASEI ---
1212 called and gave detailed report to Flor Loredo RN 1214 transported via stretcher to post op. vital signs stable. rates pain at a level 2. left in stable condition with Opal Heredia RN at bedside.
--- NOTE | 2022-11-16 08:41 | EXP.ANES.II ---
[facility] Anesthesia Record Part II Anesthesia Record Part II Discharge Time: 12:14 Destination: Surgical Day Care (OP Surgery) PACU nurse assessment reviewed?: Yes Patient Condition:: Good Anesthesia Complications:: None Swallowing reflex intact?: Yes Cyanosis?: No Blood Pressure: 118/71 Pulse Rate: 89 Temperature: 98.3 F Mental Status: Alert & Oriented Pain level:: 2 Nausea and/or vomitting:: None Intake, IV Amount: 0
[2022-11-16 08:42] VITALS: BP 118/71; PULSE 89; TEMP 36.8
== END 2022-11-13 12:50 | disposition home or self-care (01) ==
PROVIDERS: PCP Nurse Practitioner Family; Visit Provider Orthopaedic Surgery
PROC: (CPT 20680; principal; 2022-11-13 08:30)
DX: T84.84XA Pain due to internal orthopedic prosthetic devices, implants and grafts, initial encounter (principal); G89.18 Other acute postprocedural pain; Y79.1 Therapeutic (nonsurgical) and rehabilitative orthopedic devices associated with adverse incidents; T84.293A Other mechanical complication of internal fixation device of bones of foot and toes, initial encounter; E11.9 Type 2 diabetes mellitus without complications; Z79.84 Long term (current) use of oral hypoglycemic drugs; F17.210 Nicotine dependence, cigarettes, uncomplicated
CPT/HCPCS: 20680; 71045; 73600; 76000; 81025; 82962; 85651; 86140; 87075; 87205; 96374; C1776; J2405; J3370

== ENCOUNTER → 2022-11-26 10:39 | Outpatient (CLI) | payer OTHER, SELFPAY ==
--- NOTE | 2022-11-26 10:43 | XR_ITS ---
FINAL REPORT CLINICAL HISTORY: lt ankle hardware removal COMPARISON: 11/13/2022 FINDINGS: Left ankle Three views were obtained. There is a chronic fracture of the distal fibula with screw plate and multiple screws, stable since previous. Two screws that extended into the tibia have been removed. There are mild degenerative changes. Soft tissue swelling is seen. There is a plantar calcaneal spur. IMPRESSION: Postsurgical changes as detailed above. Reviewed, Interpreted and Dictated by Moe Acuna III, MD Transcribed by Su Pineda Authenticated and [facility]
[2022-11-26 12:15] LABS: Microscopic, Urine URINE MICROSCOPIC (MICROSCOPIC)
[2022-11-26 12:39] LABS: Basophils # 0.2 K/mm3 (0-0.2); Basophils % 1.4 % (0.1-2.0); Eosinophils # 0.1 K/mm3 (0.0-0.4); Eosinophils % 0.7 % (0.1-12.0); Hemoglobin 14.9 g/dL (12.2-16.2); Lymphocytes # 2.3 K/mm3 (0.7-4.5); Lymphocytes % 17.2 % (10-50); Mean Corpuscular Hemoglobin 29.5 pg (27.0-31.2); Mean Corpuscular Volume 89.5 fl (81-99); Mean Platelet Volume 7.2 fl (7.4-10.4); Monocytes # 0.5 K/mm3 (0.1-1.0); Monocytes % 3.8 % (1.7-9.3); Neutrophils # 10.3 K/mm3 (1.8-7.8); Neutrophils % 76.9 % (37.0-80.0); Platelet Count 446 K/mm3 (142-424); Red Blood Count 5.03 M/mm3 (4.20-5.40); Red Cell Distribution Width 13.6 % (11.5-17.5); White Blood Count 13.5 K/mm3 (4.8-10.8)
[2022-11-26 12:59] LABS: Appearance,Urine CLEAR (Clear); Blood, Urine Negative (Negative); Color,Urine YELLOW (Yellow); Glucose,Urine (UA) 3+ (Negative); Ketones,Urine 1+ (Negative); Leukocyte Esterase,Urine Negative (Negative); Nitrate,Urine Negative (Negative); Protein,Urine Negative (Negative); Specific Gravity, Urine 1.025 (1.005-1.030); Urobilinogen,Urine 0.2 EU/dl (0.2)
[2022-11-26 13:02] LABS: Bilirubin,Urine 1+ (Negative); Erythrocyte Sedimentation Rate 11 mm/hr (0-20)
[2022-11-26 13:16] LABS: WBC,Urine Occasional #/hpf (0-3)
[2022-11-26 13:17] LABS: Bacteria,Urine Trace /lpf; Transitional Epi Cells,Urine OCC #/lpf (0-3)
[2022-11-26 13:59] LABS: C-Reactive Protein 28.1 mg/L (0-4)
== END ==
PROVIDERS: Physician Assistant Surgical; PCP Nurse Practitioner Family; Visit Provider Orthopaedic Surgery
DX: S82.402A Unspecified fracture of shaft of left fibula, initial encounter for closed fracture (principal); M25.372 Other instability, left ankle
CPT/HCPCS: 36415; 73610; 81001; 85025; 85651; 86140

== ENCOUNTER 2022-11-27 10:57 | Day surgery (SDC) | payer OTHER, SELFPAY ==
[2022-11-27] VITALS (17 sets, daily range): BP systolic 97–149; BP diastolic 56–99; PULSE 68–103; RESP 16–20; TEMP 36.2–43; O2SAT 91–99; BMI 33.6
[2022-11-27 11:27] LABS: Urine Pregnancy, HCG Qual. Negative (Negative)
[2022-11-27 11:40] LABS: POC Glucose,Bedside 148 (70-110)
--- NOTE | 2022-11-27 12:36 | EXP.ANES.CKL ---
[facility] Disclaimer: The information contained in this section may have been updated after the patient was seen, as this information can be updated by other users. Medical History History of diabetes mellitus History of edema Surgical History (Updated 11/27/22 @ 11:20 by Dianna Cool RN) History of ankle surgery History of carpal tunnel release Family History Other Family history of CVA Family history of diabetes mellitus Family history of heart disease Social History Smoking Status: Current every day smoker tobacco type: cigarettes packs per day: 1 second hand exposure: No alcohol intake: never substance use type: marijuana current occupational status: unemployed Travel in the last 8 weeks: None household members: spouse housing: house current occupational exposures/hazards: No caffeine: Yes [facility] Anesthesia Checklist Patient Identification Patient Identification: Arm Band Structural Data Admitted From: Home Planned Operative Procedure/s: Left Ankle Arthroscopy Consent for Planned Operative Procedure(s) Verified: Yes Verified Documents: Surgical Consent and History and Physical NPO Status Verified Time NPO: 00:00 Additional verifications Anesthesia Reactions: No Hx Blood Transfusions: No Blood Transfusion Reaction: No Airway Assessment C-Spine Mobility Assessed: Yes TMJ Mobility Assessed: Yes Dentition: Good Dentition (lower. Upper Edentulous) Neurological Assessment Level of Consciousness: Awake and Alert Anesthesia Plan Anesthesia Risk discussed: Yes Anesthesia Plan: Verified ASA Class: III Anesthesia Type: General
--- NOTE | 2022-11-27 12:48 | EXP.ORTH.CON ---
History of Present Illness *Admission Date: 11/27/22 *Reason for visit:: Left ankle syndesmotic malreduction *History of present illness: 52-year-old female status post bimalleolar equivalent ankle fracture status open reduction internal fixation. She developed loosening of her syndesmotic screws, had mildly elevated inflammatory markers. She underwent hardware removal, deep cultures last week which were negative. [facility] Disclaimer: The information contained in this section may have been updated after the patient was seen, as this information can be updated by other users. Medical History (Updated 11/27/22 @ 12:51 by Julián Manzano JR, MD) History of diabetes mellitus History of edema Surgical History (Updated 11/27/22 @ 11:20 by Dianna Cool, TAD) History of ankle surgery History of carpal tunnel release Family History Other Family history of CVA Family history of diabetes mellitus Family history of heart disease Social History Smoking Status: Current every day smoker tobacco type: cigarettes packs per day: 1 second hand exposure: No alcohol intake: never substance use type: marijuana current occupational status: unemployed Travel in the last 8 weeks: None household members: spouse housing: house current occupational exposures/hazards: No caffeine: Yes Review of Systems Review of Systems Review of systems:: unable to obtain Constitutional Constitutional: Reports system reviewed and no additional complaints, except as documented Eyes Eyes: Reports system reviewed and no additional complaints, except as documented ENT Ears, Nose, Mouth, and Throat: Reports system reviewed and no additional complaints, except as documented *Cardiovascular Cardiovascular: Reports system reviewed and no additional complaints, except as documented *Respiratory Respiratory: Reports system reviewed and no additional complaints, except as documented *Gastrointestinal Gastrointestinal: Reports system reviewed and no additional complaints, except as documented *Genitourinary Genitourinary: Reports system reviewed and no additional complaints, except as documented *Musculoskeletal Musculoskeletal: Reports arthralgias Integumentary/Breasts Skin/Breast: Reports system reviewed and no additional complaints, except as documented *Neurologic Neurologic: Reports system reviewed and no additional complaints, except as documented Psychiatric Psychiatric: Reports system reviewed and no additional complaints, except as documented Endocrine Endocrine: Reports system reviewed and no additional complaints, except as documented Hematologic/Lymphatic Hematologic/Lymphatic: Reports system reviewed and no additional complaints, except as documented Allergic/Immunologic Allergic/Immunologic: Reports system reviewed and no additional complaints, except as documented Meds Home Medications and Allergies Home Medications Medication Instructions Recorded Confirmed Type triamterene 37.5 1 each PO DAILY Fluid 04/23/19 11/27/22 History mg-hydrochlorothiazide 25 mg tablet sitagliptin phosphate 25 mg tablet 25 mg PO DAILY Diabetes 11/06/20 11/27/22 History (Januvia) empagliflozin 25 mg tablet 25 mg PO DAILY Diabetes 02/20/21 11/27/22 History (Jardiance) bupropion HCl 150 mg tablet,12 hr 150 mg PO DAILY Depression 11/13/22 11/27/22 History sustained-release (Wellbutrin SR) citalopram 20 mg tablet (Celexa) 20 mg PO DAILY Depression 11/13/22 11/27/22 History New Prescriptions to Start Prescriptions: Allergies Allergy/AdvReac Type Severity Reaction Status Date / Time No Known Allergies Allergy Verified 11/27/22 11:20 Ortho Exam (Inpt) Vital signs and Labs for Last 24 Hours: Temp Pulse Resp BP Pulse Ox 98.2 F 68 16 97/57 L 99 11/27/22 11:27 11/27/22 11:27 11/27/22 11:27 11/27/22 11
--- NOTE | 2022-11-27 14:51 | XR_ITS ---
FINAL REPORT CLINICAL HISTORY: ORIF LEFT ANKLE USING C-ARM GUIDANCE fluoro time 1:37 Dose 4:42mGy FINDINGS: Fluoroscopy was performed for left ankle ORIF. There are 21 spot films with 1.37 minutes of fluoroscopy time. IMPRESSION: Twenty-one spot films with 1.37 minutes of fluoroscopy time. Reviewed, Interpreted and Dictated by Moe Acuna III, MD Transcribed by Su Pineda Authenticated and [facility]
--- NOTE | 2022-11-27 15:14 | EXP.ANES.I ---
[facility] Anesthesia Record Part I Anesthesia Record I Intake, IV Amount: 1,000 Estimated blood loss (mL): 10 Urine output (mL): 0 Blood Products used (#): none Blood Pressure: 135/81 SaO2: 96 Pulse Rate: 99 Respiratory Rate: 18 Temperature: 97.2 F Patient is:: Drowsy and Stable Stable to PACU at:: 15:05
--- NOTE | 2022-11-27 15:35 | PC.NURSE ---
Pt is in pain 10/10 screaming,crying. Has rec'd Dilaudid 2mg total so far. Ice applied, elevated, emotional support and comfort as needed. VSS, RR even
--- NOTE | 2022-11-27 15:55 | SUR.PHASEI ---
Pt crying out and yelling out in pain after PRN Dilaudid 2mg and Morphine 4 mg so far, Anesthesia provider, Albin Cesar NEUROSCIENCE DIRECTOR NA notified and came to bedside. NEUROSCIENCE DIRECTOR NA administering additional pain medication. Ice pack applied LLE and elevated. 2 sips of ice water taken. Pt voicing no relief yet.
--- NOTE | 2022-11-27 16:05 | PC.NURSE ---
Albin Cesar TECHNICAL SERVICES CONSULTANT still at bedside, no relief from TECHNICAL SERVICES CONSULTANT's medications given.
--- NOTE | 2022-11-27 16:15 | PC.NURSE ---
Dr. Manzano notified and updated on status. New order noted for nerve block, pt agreeable. Albin Hodge CRNa notified and to bedside.
--- NOTE | 2022-11-27 16:25 | PC.NURSE ---
Albin Hodge steam station supervisor at bedside performing block. Pt tolerating.
--- NOTE | 2022-11-27 16:45 | SUR.PHASEI ---
Nerve block started on 1624 and completed 1634. with no complications.
--- NOTE | 2022-11-27 16:45 | PC.NURSE ---
Nerve Block complete, pt calming and feeling relief already. Pt drinking. VSS.
--- NOTE | 2022-11-27 18:09 | EXP.OP.NOTE ---
Date of procedure: 11/27/22 Pre-op Diagnosis:: Left syndesmotic malreduction Post-op Diagnosis:: Same Procedure performed:: 48397: Left ankle arthroscopy 04017: Left syndesmotic repair Surgeon:: Julián Manzano JR, MD SPLICING MACHINE OPERATOR:: Robin Brower Anesthesia: GETA Estimated blood loss (mL): 5 Clinical Note:: 52-year-old female status post open reduction internal fixation left bimalleolar equivalent fracture with subsequent loss of syndesmotic reduction. She underwent screw removal, antibiotic cement placement and her intraoperative cultures last week were negative. I had a discussion with her regarding further management and after discussion of risk, benefits, alternatives, she wished to proceed with left ankle arthroscopy, syndesmotic repair. We discussed the risk and benefits of surgery. Risks included but were not limited to pain, bleeding, infection, damage to adjacent structures, need for further surgery, wound healing complications, loss of limb, . Patient expressed verbal consent and written consent was obtained for the above procedure. Operative findings:: There was widening of the syndesmosis to the point I was able to pass a 2.5 mm shaver into the syndesmosis prior to syndesmotic fixation. After syndesmotic fixation, the syndesmotic joint appeared reduced arthroscopically and I was no longer able to pass the bur into the syndesmosis Operative note:: Patient was identified in preoperative holding. Operative site was marked in indelible ink. History, physical, consent were reviewed and updated. Patient was surrendered to the anesthesia team, taken to the operative suite, placed supine on a well-padded operative table. Ipsilateral hip bump was placed as was a nonsterile thigh tourniquet and thigh [place]. Anesthesia was induced. The operative extremity was prepped and draped in the usual sterile fashion. The operative team donned sterile gowns and gloves and a timeout was called. All in attendance agreed regarding the patient's identity, procedure, operative site. Weight-based dose of antibiotics was given prior to incision. I placed the ankle into the ankle distractor, injected 10 mL of sterile saline via spinal needle into the proposed anteromedial portal site, made a small incision, introduced the cannula and camera. I transilluminated the skin laterally, passed the spinal needle once again, made a superficial incision, bluntly spread with care taken to avoid injuring branches of the superficial peroneal nerve, and introduced the shaver. I was able to pass the shaver into the syndesmosis. I debrided hypertrophic syndesmotic tissue of which there was amenable, switch portals, debrided the medial gutter of hypertrophic scar tissue. I removed the arthroscopic instruments, removed the ankle distractor. I opened her incision laterally at the level of the previous syndesmotic screws. I passed a guidewire through the more proximal hole, which had a more posteriorly oriented path of the previous syndesmotic screw. Since the fibula appeared anteriorly translated on the preoperative CT scan, I wanted to have a more posteriorly directed syndesmotic fixation device. I advanced the guidewire through the medial cortex, palpated this, and made a longitudinal incision over the proposed site of the suture buttons. At this point I backed out the wire, applied a syndesmotic clamp and noted symmetric appearing mortise on fluoroscopy. I then passed the guidewire once again, drilled, used Bovie electrocautery to dissect through periosteum. I passed an Arthrex tight rope, and with the posterior tibialis tendon protected, tighten this per certified pharmacy technician's instructions. I once again placed the ankle into the ankle distractor, inserted the camera medially and shaver laterally, inspected the syndesmosis which appeared to be reduced and I was no longer able to pass the shaver into the syndesmosis. There was more syndesmotic tissue protruding at the level of the synde
--- NOTE | 2022-11-30 15:02 | P.PNANES_ITS ---
[facility] Anesthesia Record Part II Anesthesia Record Part II Discharge Time: 16:45 Destination: Surgical Day Care (OP Surgery) PACU nurse assessment reviewed?: Yes Patient Condition:: Good Anesthesia Complications:: None Swallowing reflex intact?: Yes Cyanosis?: No Blood Pressure: 123/98 Pulse Rate: 100 Temperature: 97.3 F Mental Status: Alert & Oriented Pain level:: 2 Nausea and/or vomitting:: None Intake, IV Amount: 0
[2022-11-30 15:05] VITALS: BP 123/98; PULSE 100; TEMP 36.3
== END 2022-11-27 17:30 | disposition home or self-care (01) ==
PROVIDERS: PCP Nurse Practitioner Family; Visit Provider Orthopaedic Surgery
PROC: (CPT 29895; principal; 2022-11-27 12:00)
DX: S93.432A Sprain of tibiofibular ligament of left ankle, initial encounter (principal); F17.210 Nicotine dependence, cigarettes, uncomplicated
CPT/HCPCS: 29895; 27829; 73600; 76000; 81025; 82962; 96374; J2405

== ENCOUNTER 2022-12-04 12:44 | Outpatient (RCR) | payer OTHER, SELFPAY | END 2022-12-04 14:00 | disposition home or self-care (01) | LOC: PT 12:44 | PROVIDERS: Visit Provider Orthopaedic Surgery | DX: M79.672 Pain in left foot (principal); Z48.89 Encounter for other specified surgical aftercare | CPT/HCPCS: 97760 ==

== ENCOUNTER → 2022-12-11 09:31 | Outpatient (CLI) | payer OTHER, SELFPAY ==
--- NOTE | 2022-12-11 09:41 | XR_ITS ---
FINAL REPORT CLINICAL HISTORY: ankle fracture COMPARISON: November 26, 2022 FINDINGS: LEFT ANKLE Three views of the left ankle were obtained. Postoperative changes are again seen in the fibula with a screw plate and multiple screws present. There are new postoperative changes seen in the distal medial tibia. There are mild degenerative changes. There is soft tissue swelling about the ankle. IMPRESSION: Postoperative changes in the fibula and tibia with soft tissue swelling. Reviewed, Interpreted and Dictated by Moe Acuna III, MD Transcribed by Ivon Lakhani Authenticated and . [facility]
== END ==
PROVIDERS: PCP Nurse Practitioner Family; Visit Provider Orthopaedic Surgery
DX: M25.572 Pain in left ankle and joints of left foot (principal); M25.372 Other instability, left ankle
CPT/HCPCS: 73610

== ENCOUNTER → 2023-01-22 08:51 | Outpatient (CLI) | payer OTHER, SELFPAY ==
--- NOTE | 2023-01-22 08:55 | XR_ITS ---
FINAL REPORT CLINICAL HISTORY: s/p ankle sx f/u COMPARISON: 12/11/2022 FINDINGS: Left ankle Three views were obtained. There are postoperative changes in the distal tibia and mid in distal fibula. Screw plate and multiple screws are present. There are mild degenerative changes. There are chronic calcifications at the ankle. Plantar calcaneal spur is identified. There is soft tissue swelling. IMPRESSION: Postsurgical changes, stable since prior. Reviewed, Interpreted and Dictated by Moe Acuna III, MD Transcribed by Su Pineda Authenticated and [facility]
== END ==
PROVIDERS: PCP Nurse Practitioner Family; Visit Provider Orthopaedic Surgery
DX: M25.572 Pain in left ankle and joints of left foot (principal); M25.372 Other instability, left ankle
CPT/HCPCS: 73610

== ENCOUNTER 2023-02-02 13:18 | Outpatient (RCR) | payer OTHER, SELFPAY | END 2023-02-02 14:00 | disposition home or self-care (01) | LOC: PT 13:18 | PROVIDERS: Visit Provider Orthopaedic Surgery | DX: S93.432A Sprain of tibiofibular ligament of left ankle, initial encounter (principal); M25.372 Other instability, left ankle | CPT/HCPCS: 97760 ==

== ENCOUNTER → 2023-03-05 09:38 | Outpatient (CLI) | payer OTHER, SELFPAY ==
--- NOTE | 2023-03-05 09:44 | XR_ITS ---
FINAL REPORT CLINICAL HISTORY: ankle fracture, F/U from last sx. COMPARISON: 01/22/2023 FINDINGS: LEFT ANKLE Three views of the left ankle were obtained. A long segment sideplate and screws secure a healed fracture of the distal fibula. There is no acute fracture or dislocation. The joint spaces and mortise are intact. A large plantar spur is present. There is a 6 mm ossific density along the dorsal aspect of the talonavicular joint. There is a 5 mm ossific density inferior to the medial malleolus and a 4 mm ossific density inferior to the lateral malleolus. These are all well corticated and probably due to old trauma. There is no soft tissue abnormality. IMPRESSION: Postoperative changes as above. Well corticated ossific densities which are probably due to old trauma. No new abnormality identified. Reviewed, Interpreted and Dictated by Frankie Arce MD Transcribed by Ivon Lakhani Authenticated and [facility]
== END ==
PROVIDERS: PCP Nurse Practitioner Family; Visit Provider Orthopaedic Surgery
DX: M25.572 Pain in left ankle and joints of left foot (principal); S82.402A Unspecified fracture of shaft of left fibula, initial encounter for closed fracture
CPT/HCPCS: 73610

== ENCOUNTER 2023-04-08 16:00 | Outpatient (RCR) | payer OTHER, SELFPAY ==
--- NOTE | 2023-02-24 17:40 | HMH.PTOPEV ---
PT Outpatient Evaluation Rehab PT Outpatient Evaluation Start: 02/24/23 16:34 Freq: Status: Active Protocol: Document 02/24/23 16:34 MELVINDARRELL (Rec: 02/24/23 17:37 TALA [id number]) E-signed By Suma Aguirre, PT Outpatient Therapy Subjective History Subjective History Pt is a 52 y/o female who reports to PT s/p left ankle syndesmotic revision on . Pt reports she has had 3 surgeries since April of last year. Per reports she had an ORIF of the L fibula and deltoid ligament & syndesmotic repair on 05/15/23. Pt reports her second surgery was on 11/13/22 due to a loose screw. Per reports, pt had a radiograph at [facility] on 01/22/23 showing stable post-operative changes. Pt reports she came out of a boot ~ 2 weeks ago and received an ankle brace. Pt reports she wears an manasa wrap most of the time that makes her ankle feel better than the brace, pt states the brace causes pain in the left de la torre. Pt reports constant aching pain of the medial ankle. Pt denies paresthesia or falls since surgery. Pt reports her balance does seem off and she uses a walking stick intermittently when she is outside on unlevel ground. Pt reports she is fearful of falling and reinjuring the ankle. Pt reports 1 step in the living area of her home and 1 flight to the upstairs quarters although her bedroom is on the first floor. Pt states she has trouble getting in/out of her bath tub. Pt reports pain is aggravated by prolonged walking and standing . Pt reports her medial ankle swells with prolonged activity and at the end of the day. Pt reports she returns to her
--- NOTE | 2023-03-24 15:10 | HMH.RHREAS ---
Rehab Reassessment Rehab OP Re-assessment Start: 03/24/23 15:02 Freq: Status: Active Protocol: Document 03/24/23 15:02 MELVINDARRELL (Rec: 03/24/23 15:09 TALA [id number]) E-signed By Suma Aguirre PT Rehab Re-assessment Subjective Subjective Pt reports she feels 70% improved since starting PT. Pt reports medial ankle pain at worst as 4/10 with prolonged activity. Pt reports she is able to walk ~1-1.5 hrs with the brace donned without resting or increased pain. Pt denies increased swelling or falls. Objective Objective Notes L ankle AROM: DF 10, PF 35, Inv 30, Eversion 15 L ankle MMT: 4+/5 with exception of Inv 4/5 Gait: mildly antaglic Girth, figure 8: 51 cm Assessment Progress Assessment Progressing as Expected Assessment Notes Pt has attended 7 PT visits consisting of aerobic exercise , LE strengthening/stretching, balance/proprioception training, and modalities with good tolerance. Pt demonstrated improved ankle AROM, strength, and balance/ proprioception this date compared to initial PT session . Pt would continue to benefit from skilled PT to further improve pain, strength, balance/proprioception, gait and functional activity tolerance to assist with return to PLOF. Patient goals met ST/5 Goals Not Met LTG Revised Goals n/a Plan Plan Continue initial POC Frequency of Therapy 1-2x/week Duration of therapy 2-3 more weeks Time and Billing Re-Eval Time 10 Re-Eval Billing Units 1 PHYSICIAN CERTIFICATION: I certify the specified therapy services for Vannesa Franco are required, authorized, and reviewed every 30 days.
== END 2023-04-08 16:05 | disposition home or self-care (01) ==
LOC: PT 16:00
PROVIDERS: PCP Nurse Practitioner Family; Visit Provider Orthopaedic Surgery
DX: S93.432A Sprain of tibiofibular ligament of left ankle, initial encounter (principal)
CPT/HCPCS: 97010; 97014; 97016; 97110; 97112; 97163; 97164; 97530; G0283

== ENCOUNTER → 2023-07-02 09:17 | Outpatient (CLI) | payer OTHER, SELFPAY ==
--- NOTE | 2023-07-02 09:22 | XR_ITS ---
FINAL REPORT CLINICAL HISTORY: Left ankle fracture COMPARISON: 03/05/2023 FINDINGS: LEFT ANKLE: Three views of the left ankle were obtained. There are postoperative changes in the distal tibia and mid and distal fibula. There are chronic calcifications inferior to the medial and lateral malleolus which are stable. There is mild degenerative change. No acute bony abnormality. Plantar calcaneal spur is noted. There is no soft tissue abnormality. IMPRESSION: Postoperative and degenerative changes as above. Stable chronic calcifications. Reviewed, Interpreted and Dictated by Moe Acuna III, MD Transcribed by Yahaira Vergara Authenticated and [facility]
== END ==
PROVIDERS: PCP Nurse Practitioner Family; Visit Provider Orthopaedic Surgery
DX: S93.432A Sprain of tibiofibular ligament of left ankle, initial encounter (principal)
CPT/HCPCS: 73610

== ENCOUNTER 2024-11-23 12:59 | Outpatient (CLI) | payer OTHER, SELFPAY ==
--- NOTE | 2024-11-23 13:07 | MM_ITS ---
PROCEDURE INFORMATION: Exam: MG Bilateral Screening 3D Mammography Exam date and time: 11/23/2024 12:53 PM Age: 54 years old Clinical indication: Screening examination TECHNIQUE: Imaging protocol: Bilateral Screening tomosynthesis and 2D mammography including computer-aided detection (CAD) when performed. COMPARISON: No relevant prior studies available. FINDINGS: MAMMOGRAPHY: Breast composition: The breasts are extremely dense, which lowers the sensitivity of mammography. Mass: None. Architectural distortion: None. Calcifications: No suspicious calcifications. Asymmetric density: None. Skin thickening: None. Axillary adenopathy: None. IMPRESSION: No mammographic evidence of malignancy. Annual screening is recommended unless otherwise clinically indicated. ASSESSMENT: BI-RADS Category 1: Negative.
== END 2024-11-23 23:59 | disposition home or self-care (01) ==
LOC: RAD 13:00
PROVIDERS: PCP Nurse Practitioner; Visit Provider Nurse Practitioner
DX: Z12.31 Encounter for screening mammogram for malignant neoplasm of breast (principal)
CPT/HCPCS: 77063; 77067

== ENCOUNTER 2025-08-25 16:59 | Emergency (ER) | payer OTHER, SELFPAY ==
--- OUTSIDE RECORDS SUMMARY | 2025-08-25 17:07 | XMS_ITS | Encounter Summary ---
Author Organization [employer] ([place], [place], [place], [place]) Address [address] [place] [address] Care Team Providers Care Multimedia Educational Specialist Name Role Phone Unavailable Primary Care Provider Unavailabl e Encounter Details Date Type Department Care Team (Late st Contact Info) Description 10/23/2019 Transcribed Document [facility] [place] Family Medicine [facility] [place] [address] ProviderVentura MD [address] [place] [address] Social History Tobacco Use Types Packs/Day Years Used Date Smoking Tobacco: Never Assessed Comments Unknown Sex and Gender Information Value Date Recorded Sex Assigned at Female 05/26/2022 4:37 PM CDT Legal Sex Female 4:37 PM CDT Gender Identity Female 05/26/2022 4:37 PM CDT Sexual Orientation Not on file documented as of this encounter Miscellaneous Notes * Cerner Conversion Note - Historical ProviderMD - 10/23/2019 10:47 AM LOADER 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 CHIEF COMPLAINT: Lower back pain. HISTORY OF PRESENT ILLNESS: The patient is a 49 year old female who returns to the clinic for a follow-up on her low back pain that radiates to her bilateral upper thigh and feels like bone eggs in her leg. She rates her pain as 4/10 on the pain scale. Quality is aching and dull. Pain is constant. Heat therapy has been tried. She takes over the counter Advil. She has had her pain for 15 years. She has increased pain with lying down, decreased pain with heat, movement, and medication. She gets 80% relief with her current medication. Fall risk information sheet has been provided. ALLERGIES: NO KNOWN DRUG ALLERGIES. 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 Current tobacco use: She uses vaping for tobacco. Illicit drug use: Denied. Alcohol use: Denied. Caffeine use: Drinks caffeine. PAST MEDICAL HISTORY: Depression. PAST SURGICAL HISTORY: Negative. PAST FAMILY HISTORY: Diabetes. Stroke. Heart disease. Depression. REVIEW OF SYSTEMS: The patient's Ten System Review of Systems was performed: General: Fatigue. Respiratory: Negative. Neurological: Negative. Gastrointestinal: Negative. Musculoskeletal: Joint pain, back pain, muscle aches and pains. Cardiovascular: Negative. Psychiatric: Depression. HEENT: Negative. Endocrine: Negative. Hematology: Negative. Skin: Negative. Genitourinary: Negative. All other systems reviewed were found to be negative. VITAL SIGNS: Vital signs are reviewed. B/P 121/81, heart rate 118, respiratory rate 16, O2 SATs 93% on room air, height 5???3?? , weight 180 lb. PHYSICAL EXAMINATION: Constitutional: Freely conversant, no acute distress. General: The patient is alert and oriented x3. Normal mood and affect. The patient scored a 7 on the depression questionnaire. She is treated. Integumentary: Deferred. HEENT: Deferred. Neck: Deferred. Chest and Lung: Deferred. Cardiovascular: Deferred. Abdomen: Deferred. Peripheral Vascular: Deferred. Neurologic: Deferred. Neuropsychiatric: Deferred. Musculoskeletal: Deferred. Established patient exam is deferred. DIAGNOSTIC STUDIES: Not present. MEDICAL DECISION MAKING: Stable. EDER is reviewed and is appropriate. Patient's medications reviewed. See list in patient's file. The patient received a urine Tox. screen today. ASSESSMENT: Stable. 1. Chronic pain syndrome. 2. Lumbar spondylosis. 3. Lumbar facet arthropathy. 4. Lumbar degenerative disc disease. 5. Opioid induced constipation. PROCEDURE/TEST ORDERED: Not present. PLAN: We will continue Ms. Franco on her current medications of [place] 10 mg. q.6 hours, Flexeril 10 mg. q.12 hours, Nabumetone 500 mg. q.12 hours, Gabapentin 800 mg. q.6 hours. She denies any side effects with her medication. Less than 3 minute smoking cessation counselling. She uses vaping. The patient is in agreement with the above plan. We will see this patient back in follow-up in two months. Megan Donohue M.D. MITESH:sunshine documented in this encounter Plan of Treatment Not on file documented as of this encounter Visit Diagnoses Not on filedocumented in this encounter
--- OUTSIDE RECORDS SUMMARY | 2025-08-25 17:07 | XMS_ITS | Encounter Summary ---
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 HISTORY OF PRESENT ILLNESS: The patient is a 49 y/o female who returns to the Clinic today with a 15 year history significant for back pain as well as thigh pain. The patient states the pain is worse with prolonged recumbency. The patient does get relief with alternating ice and heat therapy as well as medication use and positional changes. The patient's pain level today is a 6/10 on the numerical pain scale rating. She is reporting 80% pain relief at this time with Gabapentin 800 mg four times daily dosing, [place] 10/325 mg four times daily dosing, Flexeril 10 mg twice daily dosing, Nabumetone 500 mg twice daily dosing. Nursing intake was reviewed and noted on today's visit. VITAL SIGNS: Vital signs are reviewed today. B/P: 111/46; Heart rate: 92; Respirations: 16; Oxygen saturation is 95% on room air; Height 5???3?? , weight 180 lbs HISTORY: Allergies: This individual reports none. Social History: Marital status: The patient is currently . Current work status: The patient does not list occupation at this time. Illicit drug use: Denies. Current tobacco use: Denies other than vapor cigarettes. Alcohol use: Denies. Caffeine use: Daily. Past Medical History: This individual reports nothing. Past Surgical History: This individual reports nothing. Past Family History: Type 2 diabetes. Heart disease Depression REVIEW OF SYSTEMS: The patient's ten system review of systems was reviewed and on today's visit this individual has complaints of the following: General: Fatigue. Respiratory: Negative. Neurological: Numbness and tingling Gastrointestinal: Negative. Musculoskeletal: Joint pain, stiffness, back pain. Cardiovascular: Negative. Psychiatric: Negative. HEENT: Negative. Endocrine: Negative. Hematology: Negative. PHYSICAL EXAMINATION: Constitutional: The patient is conversant and well-nourished. Vital signs are reviewed today. Integumentary: Deferred. HEENT: Deferred. Neck: Deferred. Chest and Lung: Deferred. Cardiovascular: Deferred. Abdomen: Deferred. Peripheral Vascular: Deferred Neurologic: Deferred. Musculoskeletal: Deferred. Psychiatric: The patient is alert and oriented to self, time, and place today. The patient has a normal mood and affect on today's visit and there is mild depression on the depression questionnaire that was completed today. DIAGNOSTIC STUDIES: Not present MEDICAL DECISION MAKING: Stable. ASSESSMENT: 1. Chronic pain syndrome. 2. Lumbar degenerative disc disease. 3. Lumbar spondylosis. 4. Lumbar facet arthropathy. 5. Opioid induced constipation. 6. Nicotine misuse. PROCEDURE/TEST ORDERED: Not present. CURRENT PLAN: I am going to continue this individual on her current medication regimen from our facility at this time. She appears to be stable with her medicines. EDER report was appropriate upon review today. The patient has undergone a urine tox screen on 10/20/2019 which was appropriate. I spent 3-5 minutes today discussing nicotine cessation with this individual. We will see the patient back in the Clinic in two months for a follow-up appointment. SHEFALI Steel/mario documented in this encounter Plan of Treatment Not on file documented as of this encounter Visit Diagnoses Not on filedocumented in this encounter
--- OUTSIDE RECORDS SUMMARY | 2025-08-25 17:07 | XMS_ITS | Encounter Summary ---
Author Organization [employer] ([place], [place], [place], [place]) Address [address] [place] [address] Care Team Providers Care Groundwater Programs Director Name Role Phone Unavailable Primary Care Provider Unavailabl e Encounter Details Date Type Department Care Team (Late st Contact Info) Description 08/29/2019 Transcribed Document [facility] [place] [facility] [place] [address] ProviderVentura MD [address] [place] [address] Social History Tobacco Use Types Packs/Day Years Used Date Smoking Tobacco: Never Assessed Comments Unknown Sex and Gender Information Value Date Recorded Sex Assigned at Female 05/26/2022 4:37 PM CDT Legal Sex Female 4:37 PM CDT Gender Identity Female 05/26/2022 4:37 PM CDT Sexual Orientation Not on file documented as of this encounter Miscellaneous Notes * Cerner Conversion Note - Ventura ProviderMD - 08/29/2019 9:24 AM CDT Patient: VANNESA OQUENDO Age: 49 Years Sex: Female : 1970 FOLLOWUP DATE OF SERVICE: 08/25/2019 CHIEF COMPLAINT: Low back pain, leg pain. HISTORY OF PRESENT ILLNESS: The patient is a 49-year-old female who returns to the clinic today with a 15-year history significant for low back pain and bilateral lower extremity pain, being equal in severity. The patient states that the pain is worse with sitting too long or being in a flat position. The patient does get relief with the application of heat. The patient's pain level today is 6/10 on the numerical pain scale rating. The patient is reporting 80% pain relief with Jermyn 10/325 mg four times daily dosing, Flexeril 10 mg twice daily dosing, Meloxicam 15 mg once daily dosing, Gabapentin 800 mg four times daily dosing. Nursing intake is reviewed and on today's visit this individual is currently 5'3 and weighs 180 lb. HISTORY: Allergies: This individual reports none. SOCIAL HISTORY: Marital status: . 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 Current tobacco use: Nicotine use in the form of vapor cigarettes. Illicit drug use: Denies. Alcohol use: Denies. Caffeine use: Uses daily. Past Medical History: Depression. Heartburn. Past Surgical History: This individual reports none. Past Family History: Type 2 diabetes. Heart disease. Depression. REVIEW OF SYSTEMS: The patient's ten system Review of Systems was reviewed and at today's visit this individual has complaints of the following: General: Negative. Respiratory: Negative. Neurological: Negative. Gastrointestinal: Negative. Musculoskeletal: Back pain. Cardiovascular: Negative. Psychiatric: Negative. HEENT: Negative. Endocrine: Negative. Hematology: Negative. Skin: Negative. Genitourinary: Negative. PHYSICAL EXAMINATION: Constitutional: Conversant and well-nourished. Vital signs reviewed today. Integumentary: Deferred. HEENT: Deferred. Neck: Deferred. Chest and Lung: Deferred. Cardiovascular: Deferred. Abdomen: Deferred. Peripheral Vascular: Deferred Neurologic: Deferred. Neuropsychiatric: The patient is alert and oriented to self, time and place today. The patient has a normal mood and affect at today's visit and there is mild depression on the depression questionnaire that was completed today. Musculoskeletal: Deferred. DIAGNOSTIC STUDIES: Not present. ASSESSMENT: 1. Chronic pain syndrome. 2. Lumbar spondylosis. 3. Lumbar facet arthropathy. 4. Lumbar degenerative disc disease. 5. Opioid-induced constipation PROCEDURE/TEST ORDERED: Not present. CURRENT PLAN: I am going to continue this individual on her current medication regiment from our facility at this time. Her primary care physician had discontinued her Mobic 50 mg secondary to elevations of her blood sugars. We are going to discontinue the Mobic 15 mg and I am going to try her some Nabumetone 500 mg twice daily dosing to see if we have some effect for antiinflammatory pain control without elevation of the blood sugars. We are going to hold the Flexeril 10 mg at today's visit. She will let us know when she needs this medicine again. EDER report was appropriate upon review today. SHEFALI Steel/sara documented in this encounter Plan of Treatment Not on file documented as of this encounter Visit Diagnoses Not on filedocumented in this encounter
--- OUTSIDE RECORDS SUMMARY | 2025-08-25 17:07 | XMS_ITS | Encounter Summary ---
Author Organization [email or web address] ([place], [place], [place], [place]) Address [address] [place] [address] Care Team Providers Care Epic Cupid Analyst Name Role Phone Unavailable Primary Care Provider Unavailabl e Encounter Details Date Type Department Care Team (Late st Contact Info) Description 07/05/2020 Transcribed Document [facility] [place] [facility] [place] [address] ProviderVentura MD [address] [place] [address] Social History Tobacco Use Types [...] Cerner Conversion Note - Ventura ProviderMD - 07/05/2020 4:05 PM CDT Patient: VANNESA FRANCO Age: 50 Years Sex: Female : 1970 FOLLOWUP DATE OF SERVICE: 06/21/2020 CHIEF COMPLAINT: Back and leg pain. HISTORY OF PRESENT ILLNESS: The patient is a 50-year-old female who returns to the clinic for followup on her 15+ year history of back and bilateral leg pain. She rates her pain as 4/10 on the pain scale. Quality is aching, dull and constant. She gets 80% relief with her current medication. She has increased pain with lying down and decreased pain with heat and prescription medication and repp-mth-onkolaz Advil. Fall risk information sheet provided. HISTORY: Allergies: No known drug allergies. Social History: Marital status: . Current work status: Unemployed. Current tobacco use: She uses tobacco in the form of Vaping. Illicit drug use: Denies. Alcohol use: Denies. Caffeine use: She drinks caffeine. Past Medical History: Depression. Past Surgical History: Negative. Past Family History: Diabetes. Depression. REVIEW OF SYSTEMS: The patient's ten system Review of Systems was reviewed. General: Negative. Respiratory: Negative. Neurological: Negative. Gastrointestinal: Negative. Musculoskeletal: Joint pain/stiffness, back pain. Cardiovascular: Negative. Psychiatric: Negative. HEENT: Negative. Endocrine: Negative. Hematology: Negative. Skin: Negative. Genitourinary: Negative. VITAL SIGNS: Vital signs are reviewed. BP 133/77, heart rate 97, respiratory rate 18, O2 SATs 98%, height 5'3 , weight 175 lb. PHYSICAL EXAMINATION: Constitutional: Freely conversant and in no acute distress. Integumentary: Deferred. HEENT: Deferred. Neck: Deferred. Chest and Lung: Deferred. Cardiovascular: Deferred. Abdomen: Deferred. Peripheral Vascular: Deferred Neurologic: Deferred. Neuropsychiatric: Alert and oriented x3. Normal mood and affect. She scored an 8 on her depression questionnaire. She is treated. Musculoskeletal: Deferred. MEDICAL DECISION MAKING: EDER is reviewed and is appropriate. The patient's urine tox screen from 04/19/2020 is okay except there was no Hydrocodone metabolite. Patient???s medications are reviewed. See list in patient???s file. ASSESSMENT: Stable. 1. Chronic pain syndrome. 2. Lumbar degenerative disc disease. 3. Lumbar spondylosis. 4. Lumbar facet arthropathy. 5. Nicotine misuse. CURRENT PLAN: I am going to continue Ms. Franco on her current medication of [place]r 10 mg q.6h, Gabapentin 800 mg q.6h. She denies any side-effects. Less than 3 minutes was spent on smoking cessation counseling. I commended her as she is trying to quit and is one Chantix. She is in agreement with the above plan. We will see her back in followup in two months. Megan Donohue M.D. [place] documented in this encounter Plan of Treatment Not on file documented as of this encounter Visit Diagnoses Not on filedocumented in this encounter
--- OUTSIDE RECORDS SUMMARY | 2025-08-25 17:07 | XMS_ITS | Referral Summary ---
Author Organization [employer] ([place], [place], [place], [place]) Address [address] [place] [address] Care Team Providers Care Operations Program Manager Name Role Phone Unavailable Primary Care Provider Unavailabl e Social History Tobacco Use Types Packs/Day Years Used Date Smoking Tobacco: Never Assessed Comments Unknown Sex and Gender Information Value Date Recorded Sex Assigned at Female 05/26/2022 4:37 PM CDT Legal Sex Female 4:37 PM CDT Gender Identity Female 05/26/2022 4:37 PM CDT Sexual Orientation Not on file Plan of Treatment Not on file
--- OUTSIDE RECORDS SUMMARY | 2025-08-25 17:07 | XMS_ITS | Clinical Summary ---
Author Organization [employer] ([place], [place], [place], [place]) Address [address] [place] [address] Care Team Providers Care Websphere Architect Name Role Phone Unavailable Primary Care Provider [...]
--- OUTSIDE RECORDS SUMMARY | 2025-08-25 17:08 | XMS_ITS | Clinical Summary ---
Author Organization [facility] Address [address] [place] [address] Care Team Providers Care Industrial Technologist Name Role Phone Lizzeth Gee DMD Unavailable [phone] Pcp, No Primary Care Provider UnavailGiorgio Larson Unavailable Unavailable Francoise Simental Unavailable Unavailable Allergies No known active allergies Medications triamterene-hyd roCHLOROthiazid e (Dyazide) 37.5-25 MG capsule Take 37.5 capsules by mouth 1 (one) time each day. 03/29/2019 Active empagliflozin-l inagliptin (Glyxambi) 25-5 MG Take 1 tablet by mouth 1 (one) time each day. Active SITagliptin Phosphate (JANUVIA PO) Take 10 mg by mouth 1 (one) time each day. Active Insulin Detemir (LEVEMIR FLEXPEN SC) Inject 50 mg under the skin 1 (one) time each day. Active buPROPion HCl (WELLBUTRIN PO) Take 30 mg by mouth 1 (one) time each day. Active citalopram (CeleXA) 20 MG tablet Take 1 tablet (20 mg) by mouth 1 (one) time each day. Active chlorhexidine (Peridex) 0.12 % solution Use 15 mL in the mouth or throat 2 (two) times a day. 473 mL 12/21/2023 Active Active Problems No known active problems Family History Medical History Relation Name Comments Cardiac disorder Mother Diabetes Mother Relation Name Status Comments Mother Social History Tobacco Use Types Packs/Day Years Used Date Smoking Tobacco: Some Days Cigarettes Smokeless Tobacco: Never Tobacco Cessation:Ready to Q uit: Not Asked; Counseling Given: Not Answered Alcohol Use Standard Drinks/Week Comments Yes 0 (1 standard drink = 0.6 oz pur e alcohol) Comments Unknown Sex and Gender Information Value Date Recorded Sex Assigned at Not on file Legal Sex Female 6:04 PM EDT Gender Identity Not on file Sexual Orientation Not on file Last Filed Vital Signs Vital Sign Reading Time Taken Comments Blood Pressure 139/84 02/02/2025 2:00 PM EST Pulse 102 02/02/2025 2:00 PM EST Temperature 36.6 C (97.9 F) 03/29/2019 10:27 AM EDT Respiratory Rate - - Oxygen Saturation - - Inhaled Oxygen Concentration - - Weight 87.9 kg (193 lb 12.2 oz) 019 10:27 AM EDT Height 160 cm (5' 3 ) 03/29/2019 10:27 AM EDT Body Mass Index 34.32 03/29/2019 10:27 AM EDT Plan of Treatment Health Maintenance Due Date Last Done Comments Dental Prophylaxis 1970 Dental X-Ray: Bitewings 1972 [facility]-Depression Screening 1970 [facility]-HIV Screening 1972 [facility]-Hepatitis C Screening 1972 [facility]-Infant/Child/Adol SDOH Screenings 1972 [facility]- SDOH Screenings 1990 [facility]-Adult SDOH Screenings 1990 [facility]-DTaP,Tdap,and Td Vaccine s (1 - Tdap) 1991 [facility]-Hepatitis B Vaccines (1 of 3 - 19+ 3-dose series) 1991 [facility]-Pneumococcal Vaccine: 50 + Years (1 of 2 - PCV) 1991 [facility]-Pap Smear 1993 [facility]-Cervical Cancer Screening 2002 [facility]-HPV/Cotest 2002 CT Colonography 2017 Colonoscopy 2017 FIT 2017 FOBT 2017 Sigmoidoscopy 2017 [facility]-Breast Cancer Screening 2022 [facility]-Zoster Vaccines (1 of 2) 2022 Dental Oral Exam 03/15/2024 09/13/2023, 07/20/2023 [id number] Vaccine ( 2023- season) 2025 [facility]-Influenza Vaccine (#1) 2025 Dental X-Ray: Full Mouth 03/16/20272 024, 07/20/2023 FIT-DNA 11/07/2027 11/07/2024 [facility]-Colorectal Cancer Screening 11/07/2027 HPV Vaccines Aged Out No longer eligi ble based on patient's age to complete this topic [facility]-HIB Vaccines Aged Out No longer e ligible based on patient's age to complete this topic [facility]-Hepatitis A Vaccines Aged Out No longer eligible based on patient's age to complete this topic [facility]-IPV Vaccines Aged Out No longer e ligible based on patient's age to complete this topic [facility]-Rotavirus Vaccines Aged Out No lo nger eligible based on patient's age to complete this topic Procedures Procedure Name Priority Date/Time Associated Diagnosis Comments PANORAMIC RADIOGRAPHIC IMAGE Routine 03/15/2024 9:00 AM EDT Radiolucent area in mandible COMPREHENSIVE ORAL EVALUATION - NEW OR ESTABLISHED PATIENT Routine 09/13/2023 1:45 PM EDT Caries from Last 3 Months or Most Recently Relevant to Health Maintenance Insurance [facility] [facility] MEDICAID [facility] MEDICAID DENTAL Care Teams Industrial Technologist Relationship Specialty Start Date End Date Pcp, Brittaney [address] [place] [address] PCP - General Family Medicine 09/13/23 Lizzeth Gee, DMD [address] [place] [address] Dentist Dental Document Management Consultant 07/20/23 Giorgio Guevara Dental Student Dental Document Management Consultant 09/17/23 Francoise Simental Dental Student Dental Document Management Consultant 09/17/23
--- OUTSIDE RECORDS SUMMARY | 2025-08-25 17:08 | XMS_ITS | Encounter Summary ---
Author Organization [employer] ([place], [place], [place], [place]) Address [address] [place] [address] Care Team Providers Care Moulder Operator Name Role Phone Unavailable Primary Care Provider Unavailabl e Encounter Details Date Type Department Care Team (Late st Contact Info) Description 09/10/[address] [facility] [place] [address] [place] [address] ProviderVentura MD [address] [place] [address] Social History Tobacco Use Types [...] Cerner Conversion Note - Ventura ProviderMD - 09/10/2020 3:01 PM CDT Patient: VANNESA FRANCO Age: 50 Years Sex: Female : 1970 FOLLOW-UP Date of Service: 08/23/2020 CHIEF COMPLAINT: Low back pain, bilateral leg pain. HISTORY OF PRESENT ILLNESS: The patient is a 50 y/o female who returns to the Clinic today with a 15 year history significant for both low back pain and bilateral leg pain. She states that she has also noticed that she is having increased bilateral buttock pain especially with sitting for long durations of time. Her pain today is 4/10 on the numerical pain scale rating. She states her pain is worse with prolonged laying, sitting. She does get relief with the application of heat as well as the medication used from our facility. The patient describes getting 70-80% pain relief at this time with [place] 10/325 mg 4 times daily dosing, Flexeril 10 mg twice daily dosing, gabapentin 800 mg 4 times daily dosing, meloxicam 15 mg twice daily dosing. Nursing intake was reviewed and noted on today's visit. VITAL SIGNS: Vital signs are reviewed today. Height 5???3?? , weight 170 lbs. HISTORY: Allergies to medications: None reported. Social History: Marital status: The patient is . 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 Illicit drug use: Denies. Current tobacco use: Nicotine use in the form of vapor cigarettes. Alcohol use: Denies. Caffeine use: Daily. Past Medical History: She reported nothing. Past Surgical History: She reported nothing. Past Family History: Type 2 diabetes. Mental illness. Heart disease. Depression. REVIEW OF SYSTEMS: The patient's ten system review of systems was reviewed and on today's visit this individual has complaints of the following: General: Negative. Respiratory: Negative. Neurological: Numbness and tingling. Gastrointestinal: Negative. Musculoskeletal: Joint pain, stiffness, back pain. Cardiovascular: Negative. Psychiatric: Anxiety. HEENT: Negative. Endocrine: Negative. Hematology: Negative. PHYSICAL [...] that was completed today. DIAGNOSTIC STUDIES: Not present. MEDICAL DECISION MAKING: Stable. ASSESSMENT: 1. Chronic pain syndrome. 2. Lumbar degenerative disc disease. 3. Lumbar spondylosis. 4. Lumbar facet arthropathy. 5. Nicotine misuse. PROCEDURE/TEST ORDERED: Not present. CURRENT PLAN: I am going to continue Mrs. Franco on her current medication regimen from our facility at this time. We did discuss the possibility of ischial tuberosity bursa injections with Dr. Valdez. She is going to discuss this further at her next visit. EDER report was appropriate upon review today. I spent 3-5 minutes today discussing nicotine cessation with this individual at today's visit. We will see the patient back in the Clinic in 2 months for a follow-up appointment. SHEFALI Steel/saul documented in this encounter Plan of Treatment Not on file documented as of this encounter Visit Diagnoses Not on filedocumented in this encounter
--- OUTSIDE RECORDS SUMMARY | 2025-08-25 17:08 | XMS_ITS | Encounter Summary ---
Author Organization [employer] ([place], [place], [place], [place]) Address [address] [place] [address] Care Team Providers Care Glass Designer Name Role Phone Unavailable Primary Care Provider Unavailabl e Encounter Details Date Type Department Care Team (Late st Contact Info) Description 11/15/2020 Transcribed Document [facility] [place] [facility] [place] [address] ProviderVentura MD [address] [place] [address] Social History Tobacco Use Types [...] Cerner Conversion Note - Historical ProviderMD - 11/15/2020 4:20 PM PROGRAM TECHNICIAN Patient: VANNESA FRANCO Age: 50 Years Sex: Female : 1970 FOLLOWUP DATE OF SERVICE: 10/18/2020 CHIEF COMPLAINT: Back and leg pain. HISTORY OF PRESENT ILLNESS: The patient is a 50-year-old female who returns to the clinic for followup on her 15-year history of low back pain that goes to her bilateral legs. She states she is willing to explore injections if insurance covers it. She rates her pain as 4/10 on the pain scale. Quality is aching and the pain is constant. She gets 75% relief with her current medication. She has increased pain with sleeping, lying down and decreased pain with heat and stretching. Fall risk information sheet provided. HISTORY: Allergies: No known drug allergies. Social History: Marital status: . 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 Current tobacco use: She uses tobacco in the form of Vaping. Illicit drug use: Denies. Alcohol use: Denies. Caffeine use: Not answered. Past Medical History: Depression. Diabetes. Past Surgical History: Negative. Past Family History: Diabetes. Heart disease. Depression. REVIEW OF SYSTEMS: The patient's ten system Review of Systems was reviewed. General: Negative. Respiratory: Negative. Neurological: Negative. Gastrointestinal: Negative. Musculoskeletal: Joint pain/stiffness. Cardiovascular: Negative. Psychiatric: Depression. HEENT: Hoarseness. Endocrine: Negative. Hematology: Negative. Skin: Negative. Genitourinary: Negative. VITAL SIGNS: Vital signs are reviewed. BP 121/77, heart rate 93, respiratory rate 16, O2 SATs 95%, height 5'3 , weight 170 lb. PHYSICAL EXAMINATION: Constitutional: Freely conversant and in no acute distress. Integumentary: Deferred. HEENT: Deferred. Neck: Deferred. Chest and Lung: Deferred. Cardiovascular: Deferred. Abdomen: Deferred. Peripheral Vascular: Deferred Neurologic: Deferred. Neuropsychiatric: Alert and oriented x3. Normal mood and affect. She scored a 7 on her depression questionnaire. She is treated. Musculoskeletal: Deferred. MEDICAL DECISION MAKING: EDER is reviewed and is appropriate. Patient???s medications are reviewed. See list in patient???s file. ASSESSMENT: Stable. 1. Chronic pain syndrome. 2. Lumbar degenerative disc disease. 3. Lumbar spondylosis. 4. Lumbar facet arthropathy. 5. Nicotine misuse. CURRENT PLAN: I am going to continue Ms. Franco on her current medication of Flexeril 10 mg q.12h, Gabapentin 800 mg q.6h, Meloxicam 15 mg q.12h. She denies any side-effects. At her next visit we will talk to her about facet injections or a medial branch block and rhizotomy. She is in agreement with the above plan. 3-5 minutes was spent on smoking cessation counseling. She does Vaping. We will see her back in followup in two months. Megan Donohue M.D. [place] documented in this encounter Plan of Treatment Not on file documented as of this encounter Visit Diagnoses Not on filedocumented in this encounter
--- OUTSIDE RECORDS SUMMARY | 2025-08-25 17:08 | XMS_ITS | Encounter Summary ---
Author Organization [employer] ([place], [place], [place], [place]) Address [address] [place] [address] Care Team Providers Care Cell Room Supervisor Name Role Phone Unavailable Primary Care Provider Unavailabl e Encounter Details Date Type Department Care Team (Late st Contact Info) Description 01/13/2021 Transcribed Document [facility] [place] [facility] [place] [address] ProviderVentura MD [address] [place] [address] Social History Tobacco Use Types [...] Cerner Conversion Note - Historical ProviderMD - 01/13/2021 2:50 PM VP CUSTOMER SERVICE Patient: VANNESA FRANCO Age: 50 Years Sex: Female : 1970 FOLLOW-UP DATE OF SERVICE: 12/20/2020. CHIEF COMPLAINT: Low back pain, bilateral leg pain. HISTORY OF PRESENT ILLNESS: The patient is a 50-year-old female who returns to the clinic today with a 15-year history significant for both low back pain and bilateral leg pain involvement. She describes that her pain today is a 4/10 on the numerical pain scale rating. She has been dealing with pain for close to 15 years. Her pain is worse with recumbency. She does get some relief with stretching exercises as well as medication use from our facility. She describes 75-80% pain relief at this time with the use of [place] 10/325 mg four times daily dosing, Gabapentin 800 mg four times daily dosing, Flexeril 10 mg twice daily dosing, and Meloxicam 15 mg once daily dosing. Nursing intake was reviewed and on today's visit this individual is 5'3 and weighs 185 lbs. HISTORY: Allergies to medication: None reported. Social History: Marital status: Unemployed. Current work status: She did not report marital status. Current tobacco use: Nicotine use in the form of cigarettes, one pack a week for an undisclosed number of years. Illicit drug use: Denies. Alcohol use: Denies. Caffeine use: Not reported. Past Medical History: Depression. Type 2 diabetes. Past Surgical History: Hand surgery. Past Family History: Type 2 diabetes. Heart disease. Depression. REVIEW OF SYSTEMS: The patient's ten system Review of Systems was reviewed and noted at today's visit. This individual has complaints of the following: General: Fatigue. Respiratory: Negative. Neurological: Negative. Gastrointestinal: Negative. Musculoskeletal: Joint pain/stiffness, back pain. Cardiovascular: Negative. Psychiatric: Anxiety. HEENT: Negative. Endocrine: Negative. Hematology: Negative. Skin: Negative. Genitourinary: Negative. PHYSICAL EXAMINATION: Constitutional: Conversant and well-nourished. Vital signs reviewed today. Integumentary: Deferred. HEENT: Deferred. Neck: Deferred. Chest and Lung: Deferred. Cardiovascular: Deferred. Abdomen: Deferred. Peripheral Vascular: Deferred. Neurologic: Deferred. Psychiatric: The patient is alert and oriented to self, time, and place today. The patient has a normal mood and affect at today's visit and there is minimal evidence of depression on the depression questionnaire that was completed today. Musculoskeletal: Deferred. ASSESSMENT: 1. Chronic pain syndrome. 2. Lumbar degenerative disc disease. 3. Lumbar spondylosis. 4. Lumbar facet arthropathy. 5. Nicotine misuse. CURRENT PLAN: I am going to have this individual undergo a urine tox at today's visit. We will go over the results of the study with the patient at the next visit. This individual's EDER report was appropriate upon review today. I am not going to make any changes to her medicines at this time. I spent 3-5 minutes discussing nicotine cessation with this individual at today's visit. SHEFALI Steel/dada documented in this encounter Plan of Treatment Not on file documented as of this encounter Visit Diagnoses Not on filedocumented in this encounter
--- OUTSIDE RECORDS SUMMARY | 2025-08-25 17:08 | XMS_ITS | Encounter Summary ---
Author Organization [employer] ([place], [place], [place], [place]) Address [address] [place] [address] Care Team Providers Care Client Partner Name Role Phone Unavailable Primary Care Provider Unavailabl e Encounter Details Date Type Department Care Team (Late st Contact Info) Description 05/16/2020 Transcribed Document [facility] [place] [facility] [place] [address] ProviderVentura MD [address] [place] [address] Social History Tobacco Use Types [...] Cerner Conversion Note - Ventura ProviderMD - 05/16/2020 12:10 PM CDT Patient: VANNESA FRANCO Age: 49 Years Sex: Female : 1970 FOLLOW-UP Date of Service: 04/19/2020 CHIEF COMPLAINT: Low back pain, bilateral leg pain. HISTORY OF PRESENT ILLNESS: The patient is a 49 y/o female who returns to the Clinic today with a 15 year history significant for low back pain as well as bilateral lower extremity pain involvement which stops at the knees. She describes her pain as worse with prolonged and standing or laying for short durations of time. She describes having increased pain with cold wet weather changes. Her pain is improved with the application of heat. Her pain today is a 7/10 on the numerical pain scale rating. She is reporting 80-85% pain relief at this time with the use of [place] 10/325 mg 4 times daily dosing, gabapentin 800 mg 4 times daily dosing. Nursing intake was reviewed and noted on today's visit. VITAL SIGNS: Vital signs are reviewed today. B/P: 152/102 in the left arm and 133/97 in the right arm; Heart rate: 113; Respirations: 18; Oxygen saturation is 94% on room air; Height 5???3?? , weight 180 lbs. HISTORY: Allergies to medications: _ Social History: Marital status: The patient is currently . 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 Illicit drug use: Denies. Current tobacco use: Nicotine use in the form of vapor cigarettes, typically one-half pack a day for greater than 20 years. Alcohol use: Denies. Caffeine use: Daily. Past Medical History: Depression. Past Surgical History: None. Past Family History: Type 2 diabetes. Heart disease. Depression. REVIEW OF SYSTEMS: The patient's ten system review of systems was reviewed and on today's visit this individual has complaints of the following: General: Fatigue. Respiratory: Negative. Neurological: Negative. Gastrointestinal: Negative. Musculoskeletal: Joint pain, stiffness, back pain, muscle weakness. Cardiovascular: Negative. Psychiatric: Depression. HEENT: Negative. Endocrine: Negative. Hematology: Negative. PHYSICAL [...] regimen from our facility at this time. EDER report was appropriate upon review today. The patient is undergoing a urine tox screen today to confirm compliance with medication management from our facility. I spent 3-5 minutes today discussing nicotine cessation with this individual at today's visit. We will see the patient back in the Clinic in 2 months for a follow-up appointment. SHEFALI Steel/saul documented in this encounter Plan of Treatment Not on file documented as of this encounter Visit Diagnoses Not on filedocumented in this encounter
--- OUTSIDE RECORDS SUMMARY | 2025-08-25 17:08 | XMS_ITS | Encounter Summary ---
Author Organization [employer] ([place], [place], [place], [place]) Address [address] [place] [address] Care Team Providers Care Pick Pulling Machine Operator Name Role Phone Unavailable Primary Care Provider Unavailabl e Encounter Details Date Type Department Care Team (Late st Contact Info) Description 06/28/2019 Transcribed Document [facility] [place] [facility] [place] [address] ProviderVentura MD [address] [place] [address] Social History Tobacco Use Types [...] Cerner Conversion Note - Historical ProviderMD - 06/28/2019 9:57 AM CDT Patient: VANNESA OQUENDO Age: 49 Years Sex: Female : 1970 CHIEF COMPLAINT: Bilateral leg pain and low back pain. HISTORY OF PRESENT ILLNESS: This is a 49 year old female being seen in follow-up with a fifteen year history of low back pain as well as bilateral lower extremity pain. She describes it as a constant, aching, and dull pain which is exacerbated with lying down, prolonged standing, walking, and bending. It is reduced with rest, ice, [id number] and prescription medication. She currently rates the pain as 5/10 VAS and reports an 80% reduction with medication. Med list reviewed. Pertinent meds include Hydrocodone 10 mg, one p.o. q.6 hours, Mobic 15 mg, one p.o. daily, Gabapentin 800 mg., one p.o. q.6 hours, Flexeril 10 mg, one p.o. q.12 hours. Nurse intake is reviewed. Fall risk information sheet has been provided. HISTORY: Allergies: None. Social History: Denied. Marital status: . 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 Current tobacco use: Enjoys a vaporizer. Illicit drug use: Denied. Alcohol use: Denied. Caffeine use: Enjoys. Past Medical History: Positive for depression. Past Surgical History: Reviewed. Past Family History: Positive for diabetes, depression. REVIEW OF SYSTEMS: General: Negative. Respiratory: Negative. Neurological: Negative. Gastrointestinal: Positive, last bowel movement 06/27/2019, soft. Musculoskeletal: Joint pain, stiffness, back pain. Cardiovascular: Leg pain. Psychiatric: Negative. HEENT: Negative. Endocrine: Negative. Hematology: Negative. Skin: Negative. Genitourinary: Negative. VITAL SIGNS: Vital signs are reviewed. B/P 116/77, heart rate 105, respiratory rate 18, O2 SATs 95% on room air, height 5???3?? , weight 180 lb. PHYSICAL EXAMINATION: Constitutional: Conversant. In no acute distress. Well-nourished. General: Deferred. Integumentary: Deferred. HEENT: Normocephalic. Neck: Deferred. Chest and Lung: Deferred. Cardiovascular: Deferred. Abdomen: Deferred. Peripheral Vascular: Deferred Neurologic: Deferred. Neuropsychiatric: A&O x3. PHQ-9 score of 7. Normal mood and affect. No signs of impairment. Musculoskeletal: Able to transition independently from walking, sitting and standing without overt difficulty. DIAGNOSTIC STUDIES: Not present MEDICAL DECISION MAKING: Stable. ASSESSMENT: 1. Chronic pain syndrome. 2. Lumbar spondylosis. 3. Lumbar facet arthropathy. 4. Lumbar degenerative disc disease. 5. Opioid induced constipation. PROCEDURE/TEST ORDERED: Not present. CURRENT PLAN: 1. Will continue current medications and refill her Hydrocodone, Mobic, Gabapentin, and Flexeril. 2. I did discuss opioid induced constipation and right now it is rather mild for her and so I did recommend Docusate or Senna. 3. I encouraged her to avoid a stimulant and simply go with a stool softener. I did suggest starting with one every other day, evaluate the results before increasing. 4. Questions answered to her satisfaction, replies understanding. 5. EDER reviewed. 6. Return to the clinic in two months. Sonya Whyte APRN Electronically signed by [facility], [facility] Conversion [employer]ia [employer] at 03/18/2023 11:25 AM CDT documented in this encounter Plan of Treatment Not on file documented as of this encounter Visit Diagnoses Not on filedocumented in this encounter
--- OUTSIDE RECORDS SUMMARY | 2025-08-25 17:08 | XMS_ITS | Clinical Summary ---
Author Organization [facility] Address [address] [place] [address] Care Team Providers Care Draughtsman Name Role Phone Unavailable Primary Care Provider Unavailabl e Social History Tobacco Use Types Packs/Day Years Used Date Smoking Tobacco: Never Assessed Abuse Screen Answer Date Recorded Unsafe at Home or Work/School Not on file Feels Threatened by Someone? Not on file 07/2023 Does Anyone Keep You from Co ntacting Others or Doint Things Outside the Home? Not on file 09/06/2023 Physical Sign of Abuse Present Not on file 1 Housing Stability Answer Date Recorded Current Living Arrangements Not on file 07/2023 Potentially Unsafe Housing Conditions Not on cintia e 09/06/2023 Family and Community Support Answer Cholo e Recorded Help with Day-to-Day Activities Not on file 09/06/2023 Lonely or Isolated Not on file 09/06/2023 Employment Answer Date Recorded Do you want help finding or keeping work or a korin b? Not on file 09/06/2023 Disabilities Answer Date Recorded Concentrating, Remembering, or Making Decisions Difficulty Not on file 09/06/2023 Doing Errands Independently Difficulty Not on fi le 09/06/2023 Education Answer Date Recorded Help with school or training? Not on file Preferred Language Not on file 09/06/2023 Comments Unknown Sex and Gender Information Value Date Recorded Sex Assigned at Not on file Legal Sex Female 1:26 PM EDT Gender Identity Not on file Sexual Orientation Not on file Plan of Treatment Health Maintenance Due Date Last Done Comments ANNUAL PHYSICAL 1970 Annual Gynecologic Pelvic and Breast Exam 1970 HEPATITIS C SCREENING 1970 TDAP/TD VACCINES (1 - Tdap) 1991 MAMMOGRAM 2012 COLOGUARD 2017 COLON CANCER SCREENING 5 YEAR SIGMOIDOSCOPY 2017 COLONOSCOPY [address]AL CANCER SCREENING 2017 CT COLONOGRAPHY 2017 FECAL OCCULT BLOOD TEST 2017 FIT Testing (1 year) 2017 Pneumococcal Vaccine 50+ (1 of 1 - PCV) 2022 ZOSTER VACCINE (1 of 2) 2022 INFLUENZA VACCINE 06/29/2025
--- NOTE | 2025-08-25 17:33 | ED_ITS ---
<Statement entered by Jonelle Mackey DO - 08/26/25 00:47> I was consulted by the GAUTAM, and we discussed the complexity of problems being addressed. I approve the treatment and management plan for this patient's care in the emergency department, thus performing a substantial portion of the medical decision making. Jonelle Mackey DO Discharge Plan Disposition Patient Disposition: Home, Self-Care Prescriptions Prescriptions: New cephalexin 500 mg capsule 500 mg PO BID 7 Days Qty: 14 0RF No Action bupropion HCl [Wellbutrin SR] 150 mg Tablet Sustained-Release 12 Hr 150 mg PO DAILY citalopram [Celexa] 20 mg Tablet 20 mg PO DAILY triamterene-hydrochlorothiazid 1 EACH tablet 1 each PO DAILY Januvia 25 MG tablet 25 mg PO DAILY Jardiance 25 MG tablet 25 mg PO DAILY Referrals Follow up/Referrals: Provider,Referral, MD [Primary Care Provider, Medical] - See instructions Activity Restrictions/Add. Instructions Additional Instructions/Restrictions: Today you were evaluated in the emergency department. You had some stitches placed in your calf area. Please leave this to sutures and for 7 days. Return to the ED to have the sutures removed. Return to the ED for worsening of condition, any signs of infection. Clinical Impressions Clinical Impression: Laceration Instructions Patient Instructions: DI for Laceration Repair Print Language Print Language: Lao Discharge ED Provider: Jonelle Mackey General Adult HPI General Chief complaint: Wound/Laceration Stated complaint: LAC Time Seen by Provider: 08/25/25 17:07 History of Present Illness HPI narrative: pt is a 55 year old female who presents to the ED via EMS for a laceration on her right calf area. Patient states she dropped a glass, cutting her leg. Patient states she was scared due to the blood and called EMS. She states that she has had sutures placed in the past. She denies any other injuries at this time. Upon initial evaluation, patient is alert, oriented. She has a linear laceration on her right calf area that is mostly superficial. Bleeding is controlled at this time. Related Data Home Medications ?Medication ?Instructions ?Recorded ?Confirmed triamterene 37.5 1 each PO DAILY Fluid 07/02/23 mg-hydrochlorothiazide 25 mg tablet sitagliptin phosphate 25 mg tablet 25 mg PO DAILY Diab etes 11/06/20 07/02/23 (Januvia) empagliflozin 25 mg tablet 25 mg PO DAILY Diabetes 07/02/23 (Jardiance) bupropion HCl 150 mg tablet,12 hr 150 mg PO DAILY Depr ession 11/13/22 07/02/23 sustained-release (Wellbutrin SR) citalopram 20 mg tablet (Celexa) 20 mg PO DAILY Depres levi 11/13/22 07/02/23 Previous Rx's ?Medication ?Instructions ?Recorded cephalexin 500 mg capsule 500 mg PO BID 7 days #14 cap s 08/25/25 Allergies Allergy/AdvReac Type Severity Reaction Status Date / Time No Known Allergies Allergy Verified 07/02/23 09:46 [facility] Disclaimer: The information contained in this section may have been updated after the patient was seen, as this information can be updated by other users. Medical History History of diabetes mellitus History of edema Surgical History History of ankle surgery x2 History of carpal tunnel release Family History Other Family history of CVA Family history of diabetes mellitus Family history of heart disease Social History Smoking Status: Current every day smoker tobacco type: cigarettes packs per day: 1 second hand exposure: No alcohol intake: never substance use type: marijuana current occupational status: unemployed Travel in the last 8 weeks?: None household members: spouse housing: house current occupational exposures/hazards: No caffeine: Yes Have you lived/traveled outside [place] in past 30 days?: No Contact w/someone who lives/traveled outside US past 30 days?: No Exposure to someone with infectious disease in past 14 days?: No Do you have a fever (greater than 100.4 F or 38 C)?: No Have you tested positive for COVID-19?: No Exposed to someone with COVID-19 in past 14 days?: No Do you have a sore throat?: No Do you have a cough?: No Do you have any weakness?: No Do you have any diarrhea?: No Are you experiencing any unusual bleeding?: No Do you have any muscle aches/pain?: No Do you have any abdominal pain?: No Are you experiencing loss of taste or smell?: No Other Medical History Have you received the Flu Vaccine for this season: No Have you received the Pneumonia Vaccine: No ROS Obtained: Yes Systems reviewed as appropriate & no additional complaints except as documented Physical Exam General General appearance: alert Head Head exam: normocephalic Respiratory Respiratory exam: Present normal lung sounds bilaterally Cardiovascular Cardiovascular exam: Present regular rate Abdominal Exam Abdominal exam: Present soft Back Exam Back exam: Present full ROM Neurological Exam Neurological exam: Present alert Skin Skin exam: Present other (Approximately 3 inch linear, superficial laceration to right calf area) Medical Decision Making Medical Records Screening: Per USPSTF and CDC recommendations, given the prevalence of disease in our region, it is our hospital?s policy to screen for HIV and viral Hepatitis for all patients aged 18 and over and those with ongoing risk factors. [place] Inquiry Pt receiving controlled substance: No Vital Signs: 08/25/25 17:44 08/25/25 17:51 Temperature 98.0 F 98.0 F Temperature Source Oral Pulse Rate 104 H Pulse Rate [Left Radial] 104 H Respiratory Rate 19 16 Blood Pressure 115/79 Blood Pressure [Right Arm] 115/79 Blood Pressure Mean [Right Arm] 91 02 Sat by Pulse Oximetry 95 Oxygen Delivery Method Room Air Room Air Medical Decision Narrative: In summary, pt is a 55 year old female who presents to the ED via EMS for a laceration on her right calf area. Patient states she dropped a glass, cutting her leg. Patient states she was scared due to the blood and called EMS. She states that she has had sutures placed in the past. She denies any other injuries at this time. Upon initial evaluation, patient is alert, oriented. She has a linear laceration on her right calf area that is mostly superficial. Bleeding is controlled at this time. Patient is agreeable to have sutures placed. Procedure performed. Sterile procedure performed, cleaned with Betadine. 6 sutures placed in right calf, linear laceration, suture size 4.0. Used 1% lidocaine, approximately 5 mL. Patient tolerated the procedure well. Nonadherent dressing and Sho wrap applied. We discussed that the sutures will need removed in 7 days. We discussed return precautions to the ED including all signs and symptoms of infection. Patient verbalized understanding Critical Care Critical Care Time Critical Care Time: No
[2025-08-25 17:44] VITALS: BP 115/79; PULSE 104; RESP 19; TEMP 36.7; O2SAT 95; BMI 34.7
[2025-08-25 17:51] VITALS: BP 115/79; PULSE 104; RESP 16; TEMP 36.7; O2SAT 95
== END 2025-08-25 17:51 | disposition home or self-care (01) ==
PROVIDERS: Emergency Provider Student in an Organized Health Care Education/Training Program
DX: S81.811A Laceration without foreign body, right lower leg, initial encounter (principal); W25.XXXA Contact with sharp glass, initial encounter
CPT/HCPCS: 12002; 99282

== ENCOUNTER 2025-09-30 08:08 | Emergency (ER) | payer OTHER, SELFPAY ==
[2025-09-30 08:10] VITALS: BP 129/93; PULSE 99; RESP 20; TEMP 36.8; O2SAT 97; BMI 33.6
[2025-09-30 08:16] VITALS: BP 129/93; PULSE 99; O2SAT 97
--- NOTE | 2025-09-30 08:23 | XR_ITS ---
PROCEDURE INFORMATION: Exam: XR Right Hand Exam date and time: 09/30/2025 9:10 AM Age: 55 years old Clinical indication: Fingers; Right; Splinter in distal ip joint of middle finger, posterior aspect, pain and swelling; Additional info: Swelling in middle finger TECHNIQUE: Imaging protocol: Radiologic exam of the right hand. Views: 3 or more views. 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 Chronic fragmentation of the trapezium. Healed fracture deformity at the base of the 1st metacarpal. Radial subluxation of the of the base of the 1st metacarpal. Findings appear to represent chronic changes of previous Mason fracture. Advanced osteoarthritis of the 3rd DIP joint. Moderate osteoarthritis of the 2nd DIP joint. Mild osteoarthritis of multiple additional joints of the hand. No visible acute skeletal pathology. Soft tissues: There is soft tissue edema at the distal aspect of the 3rd finger.No radiopaque foreign body. IMPRESSION: 1. No radiopaque foreign body identified in the soft tissues of the 3rd finger. If there is continued concern, ultrasound can be utilized for further evaluation. 2. Chronic posttraumatic changes of the 1st CMC joint consistent with old Mason fracture. 3. Osteoarthritis as described.
--- NOTE | 2025-09-30 08:27 | HMH.EDGENADL ---
Discharge Plan Disposition Chief Complaint: Extremity Injury, Upper Prescriptions Prescriptions: No Action bupropion HCl [Wellbutrin SR] 150 mg Tablet Sustained-Release 12 Hr 150 mg PO DAILY citalopram [Celexa] 20 mg Tablet 20 mg PO DAILY triamterene-hydrochlorothiazid 1 EACH tablet 1 each PO DAILY Januvia 25 MG tablet 25 mg PO DAILY Jardiance 25 MG tablet 25 mg PO DAILY cephalexin 500 mg capsule 500 mg PO BID 7 Days Qty: 14 0RF Referrals Follow up/Referrals: Fransico Gee MD [Primary Care Provider, Medical] - See instructions Stand Alone Forms Stand Alone Forms: Transfer Record - ED Print Language Print Language: [place] Island[place] Discharge ED Provider: Adrian Mckeon General Adult HPI General Chief complaint: Extremity Injury, Upper Stated complaint: poss right hand/finger infection Time Seen by Provider: 09/30/25 08:21 Mode of Arrival: Ambulatory Source of Information: Patient Description of Symptoms (Recalled from ER Triage Doc. by RN): pt is here for middle finger pain and swelling since wednesday, pt states she woke up with it. there is a spot on first knuckle where she removed a splinter History of Present Illness HPI narrative: Patient is a 55-year-old female with past medical history of diabetes which she reports is well-controlled who presents to the emergency department with pain and swelling in the right middle finger. The patient reports that she had a foreign body on the dorsal surface of the finger last Wednesday, she removed it with tweezers, over the last 3 days swelling is significantly increased. On arrival to the emergency department she is hemodynamically stable, mildly tachycardic, she is holding the finger in a flexed position, has significant pain with palpation of both flexor and extensor tendons, has pain with passive range of motion, and has symmetric swelling circumferentially around the finger. Related Data Home Medications ?Medication ?Instructions ?Recorded ?Confirmed triamterene 37.5 1 each PO DAILY Fluid 04/23/19 07/02/23 mg-hydrochlorothiazide 25 mg tablet sitagliptin phosphate 25 mg tablet 25 mg PO DAILY Diabetes 11/06/20 07/02/23 (Januvia) empagliflozin 25 mg tablet 25 mg PO DAILY Diabetes 02/20/21 07/02/23 (Jardiance) bupropion HCl 150 mg tablet,12 hr 150 mg PO DAILY Depression 11/13/22 07/02/23 sustained-release (Wellbutrin SR) citalopram 20 mg tablet (Celexa) 20 mg PO DAILY Depression 11/13/22 07/02/23 Previous Rx's ?Medication ?Instructions ?Recorded cephalexin 500 mg capsule 500 mg PO BID 7 days #14 caps 08/25/25 Allergies Allergy/AdvReac Type Severity Reaction Status Date / Time No Known Allergies Allergy Verified 07/02/23 09:46 [facility] Disclaimer: The information contained in this section may have been updated after the patient was seen, as this information can be updated by other users. Medical History History of diabetes mellitus History of edema Surgical History History of ankle surgery x2 History of carpal tunnel release Family History Other Family history of CVA Family history of diabetes mellitus Family history of heart disease Social History Smoking Status: Current every day smoker tobacco type: cigarettes packs per day: 1 second hand exposure: No alcohol intake: never substance use type: marijuana current occupational status: unemployed Travel in the last 8 weeks?: None household members: spouse housing: house current occupational exposures/hazards: No caffeine: Yes Have you lived/traveled outside US in past 30 days?: No Contact w/someone who lives/traveled outside US past 30 days?: No Exposure to someone with infectious disease in past 14 days?: No Do you have a fever (greater than 100.4 F or 38 C)?: No Have you tested positive for COVID-19?: No Exposed to someone with COVID-19 in past 14 days?: No Do you have a sore throat?: No Do you have a cough?: No Do you have any weakness?: No Do you have any diarrhea?: No Are you experiencing any unusual bleeding?: No Do you have any muscle aches/pain?: No Do you have any abdominal pain?: No Are you experiencing loss of taste or smell?: No Other Medical History Have you received the Flu Vaccine for this season: No Have you received the Pneumonia Vaccine: No ROS Obtained: Yes All systems reviewed & no additional complaints except as documented Physical Exam General General appearance: alert and in no apparent distress Head Head exam: atraumatic and normocephalic Eye Eye exam: Present normal appearance, PERRL and EOMI ENT ENT exam: Present normal exam and normal external ear exam Neck Neck exam: Present normal inspection, full ROM and trachea midline Chest Chest inspection: Present normal inspection and symmetric chest wall rise; Absent tenderness Respiratory Respiratory exam: Absent respiratory distress Cardiovascular Cardiovascular exam: Present regular rate, normal rhythm and other (appears warm and well perfused) Abdominal Exam Abdominal exam: Absent distention or tenderness Extremities Exam Extremities exam: Present normal inspection and full ROM Neurological Exam Neurological exam: Present alert and oriented X3 Psychiatric Psychiatric exam: Present normal affect Skin Skin exam: Present warm and dry Medical Decision Making Medical Records Medical records reviewed: Yes I reviewed the patient's medical records. Screening: Per USPSTF and CDC recommendations, given the prevalence of disease in our region, it is our hospital?s policy to screen for HIV and viral Hepatitis for all patients aged 18 and over and those with ongoing risk factors. [place] Inquiry Pt receiving controlled substance: No Clayton was queried for this patient: No Vital Signs: 09/30/25 08:10 09/30/25 08:16 09/30/25 08:59 Temperature 98.2 F Temperature Source Oral Pulse Rate 99 H 86 Pulse Rate [Left Radial] 99 H Respiratory Rate 20 Blood Pressure 129/93 H 126/77 Blood Pressure [Right Arm] 129/93 H Blood Pressure Mean [Right Arm] 105 02 Sat by Pulse Oximetry 97 97 97 Oxygen Delivery Method Room Air Room Air Room Air Lab Data Lab results reviewed: Yes I reviewed the patient's lab results. Lab Results 09/30/25 08:31: WBC 11.4 H, RBC 4.63, Hgb 12.9, Hct 40.3, MCV 87.0, MCH 27.9, MCHC 32.0, RDW 13.2, Plt Count 281, MPV 9.1, Neut % (Auto) 77.0, Lymph % (Auto) 11.2, Franklin % (Auto) 10.3 H, Eos % (Auto) 0.7, Baso % (Auto) 0.4, Neut # (Auto) 8.8 H, Lymph # (Auto) 1.3, Franklin # (Auto) 1.2 H, Eos # (Auto) 0.1, Baso # (Auto) 0.1, Sodium 131 L, Potassium 4.1, Chloride 94 L, Carbon Dioxide 29, Anion Gap 12.1, BUN 20 H, Creatinine 0.90, Estimated Creat Clear 98, Estimated GFR 65, Est GFR ( Amer) 79, Glucose 158 H, Calcium 9.4, Total Bilirubin 1.0, AST 30, ALT 20, Alkaline Phosphatase 113, C-Reactive Protein 104.6 H, Total Protein 8.2, Albumin 4.2, Globulin 4.0 H, Albumin/Globulin Ratio 1.1 09/30/25 08:31 09/30/25 08:31 Orders (Tests/Meds): ED MEDICATIONS Generic Name Dose Route Start Last Admin Trade Name Freq PRN Reason Stop Dose Admin Ceftriaxone Sodium 2 gm/ 100 mls @ 200 mls/hr 09/30/25 08:30 09/30/25 09:09 Sodium Chloride IV 10/10/25 08:29 Infused Q24H ROBIN Infusion Vancomycin/PEG/NADA/Lysine/Water 1.5 gm in 300 mls @ 150 mls/hr 09/30/25 08:45 09/30/25 08:57 Vancomycin 1.5gm/300ml (Peg) Premix IV 09/30/25 10:44 150 mls/hr ONCE ONE Administration Oxycodone HCl 5 mg 09/30/25 08:55 09/30/25 09:00 Oxycodone 5mg Immediate Release Tablet PO 10/30/25 08:54 5 mg Q4HP PRN Administration Severe Pain (7-10) Discontinued Medications Generic Name Dose Route Start Last Admin Trade Name Freq PRN Reason Stop Dose Admin Miscellaneous 1 each 09/30/25 08:30 09/30/25 08:58 Vancomycin Consult Request NOTAPPLIC 10/30/25 08:29 1 each CONSULT PHARMACY ROBIN Administration ORDERS Category Date Time Status Hand XR right minimum 3 views [XR hand RT min 3V] Stat Exams 09/30/25 08:23 Completed CBC w/Auto Diff [Complete Blood Count Auto Diff] Stat Lab 09/30/25 08:31 Completed CMP [Comprehensive Metabolic Panel] Stat Lab 09/30/25 08:31 Completed CRP [C-Reactive Protein] Stat Lab 09/30/25 08:31 Completed Blood Culture Stat Micro 09/30/25 08:36 Received Medical Decision Narrative: [facility] In summary, this 55-year-old female presents to the emergency department today with pain and swelling of the finger of the right hand. Initial evaluation the patient the patient is hemodynamically stable but uncomfortable. Differential diagnosis includes but is not limited to cellulitis, abscess, flexor tenosynovitis, extensor tenosynovitis. Based on these concerns, I ordered x-ray of the hand, laboratory workup including inflammatory markers, and empiric antibiotics. Patient received vancomycin, Rocephin for treatment. Labs personally reviewed and interpreted demonstrate mild leukocytosis, no significant anemia, significant elevation in CRP, mild hyponatremia. X-rays personally interpreted by me demonstrate no acute fracture or dislocation. I had interactive discussion with the transfer center. Due to significant concern for flexor tenosynovitis based on 4 out of 4 [place] signs they felt it was appropriate to transfer to the patient to the [facility] for further evaluation by the hand surgery team. Critical Care Critical Care Time Critical Care Time: No
--- NOTE | 2025-09-30 08:43 | PC.NURSE ---
On the phone with for a transfer per Dr. Solomon for possible hand surgery.
--- NOTE | 2025-09-30 08:45 | PC.NURSE ---
Dr. Solomon is on the phone now with .
[2025-09-30 08:53] LABS: Hematocrit 40.3 % (37.0-47.0); Hemoglobin 12.9 g/dL (12.2-16.2); Immature Granulocytes % 0.4 %; Mean Corpuscular HGB Conc 32.0 g/dL (31.8-35.4); Mean Corpuscular Hemoglobin 27.9 pg (27.0-31.2); Mean Corpuscular Volume 87.0 fl (81-99); Nucleated Red Blood Cells % 0 %; Platelet Count 281 K/mm3 (142-424); Red Blood Count 4.63 M/mm3 (4.20-5.40); Red Cell Distribution Width-SD 41.8 fL; White Blood Count 11.4 K/mm3 (4.8-10.8)
[2025-09-30] MEDS: VANCOMYCIN/WATER FOR INJ (PEG) 1.5 GM/300 ML PIGGYBACK IV (08:57)
[2025-09-30] MEDS: VANCOMYCIN CONSULT REQUEST 1 EACH NOTAPPLIC (08:58)
[2025-09-30 08:59] VITALS: BP 126/77; PULSE 86; O2SAT 97
[2025-09-30] MEDS: OXYCODONE 5MG IMMEDIATE RELEASE TABLET 5 MG PO (09:00)
[2025-09-30 09:26] LABS: Alanine Aminotransferase 20 U/L (12-78); Albumin Level 4.2 g/dl (3.5-5.0); Albumin/Globulin Ratio 1.1 (1.1-1.8); Alkaline Phosphatase 113 U/L (38-126); Anion Gap 12.1 mEq/L (5-15); Aspartate Amino Transferase 30 U/L (14-36); Bilirubin,Total 1.0 mg/dl (0.2-1.3); Blood Urea Nitrogen 20 mg/dl (7-17); Calcium 9.4 mg/dl (8.4-10.2); Carbon Dioxide 29 mmol/L (22.0-30.0); Chloride 94 mmol/L (98-107); Creatinine Clearance Estimated 98 mL/min (50-200); Creatinine,Serum 0.90 mg/dl (0.52-1.04); Estimated Glomerular Filt Rate 65 ml/min (>60); GFR (African American) 79 ML/MIN (>60); Globulin 4.0 g/dL (1.3-3.2); Glucose 158 mg/dl (74-100); Potassium 4.1 mmoL/L (3.5-5.1); Sodium 131 mmol/L (136-145); Total Protein,Serum 8.2 g/dl (6.3-8.2)
[2025-09-30 09:31] VITALS: BP 105/52; PULSE 82; O2SAT 96
[2025-09-30 09:31] LABS: C-Reactive Protein 104.6 mg/L (0-4)
[2025-09-30 10:03] VITALS: BP 101/52; PULSE 55; RESP 20; TEMP 36.8; O2SAT 98
[2025-09-30] MEDS: ONDANSETRON 4MG ODT 4 MG SL (10:06)
[2025-10-01 03:00] LABS: Acinetobacter calcoaceticus-ba Not Detected; Bacteroides fragilis Not Detected; Candida auris Not Detected; Candida glabrata Not Detected; Enterobacterales Not Detected; Enterococcus faecalis Not Detected; Enterococcus faecium Not Detected; Klebsiella aerogenes Not Detected; Klebsiella pneumoniae grp Not Detected; Proteus spp. Not Detected; Salmonella spp. Not Detected; Serratia marcescens Not Detected; Staphylococcus epidermidis Not Detected; Staphylococcus lugdunensis Not Detected; Staphylococcus spp. Detected; Stenotrophomonas maltophilia Not Detected; Streptococcus agalactiae(GrpB) Not Detected; Streptococcus pyogenes Group A Not Detected; Streptococcus spp. Not Detected; mecA/C and MREJ (MRSA) Detected
--- NOTE | 2025-10-01 03:17 | PC.NURSE ---
Spoke with TAD Rosa with blood culture results.
--- NOTE | 2025-10-01 05:55 | PC.NURSE ---
REMAINING RESULTS FAXED TO [facility] AT THIS TIME
--- NOTE | 2025-10-03 10:25 | PC.NURSE ---
Blood culture results faxed to [facility]
== END 2025-09-30 10:13 | disposition other institution (70) ==
PROVIDERS: Emergency Provider Student in an Organized Health Care Education/Training Program; PCP Family Medicine
DX: L03.011 Cellulitis of right finger (principal); R79.82 Elevated C-reactive protein (CRP); E87.1 Hypo-osmolality and hyponatremia; M79.641 Pain in right hand; E11.9 Type 2 diabetes mellitus without complications; F17.210 Nicotine dependence, cigarettes, uncomplicated; B95.62 Methicillin resistant Staphylococcus aureus infection as the cause of diseases classified elsewhere; Z79.84 Long term (current) use of oral hypoglycemic drugs
CPT/HCPCS: 73130; 80053; 85025; 86140; 87040; 87077; 87154; 87186; 96365; 96366; 99285; J0696; J3375; Q0162